=== PATIENT | female | born 1930 | race Caucasian/White ===

== ENCOUNTER 2017-11-29 14:31 | Emergency (ER) | payer MEDICARE, BC ==
[~2017-11-29 14:31] MED LIST: AZIT250T43 PO; CARA1TAB2 PO; FERR324T4 PO; HYDR-3533 PO; HYDR25TA35 PO; NAPR500 PO; PRED20 PO; PROT40TA PO; TRAM50TA PO; VENTAER INH
[2017-11-29 14:35] VITALS: BP 150/85; PULSE 98; RESP 18; TEMP 98.9; O2SAT 96
[2017-11-29] MEDS ORDERED: TRAM50TA PO ×2 (14:49→16:52)
[2017-11-29] MEDS ORDERED: ASPI81CH6 CHEW (14:49)
--- NOTE | 2017-11-29 15:29 | PD ---
HPI . Pain Chief Complaint: Pain: Acute or Chronic Time Seen by Provider: 14:45 Travel History International Travel<30 days: No Contact w/Intl Traveler<30days: No Traveled to known affect area: No History of Present Illness HPI Patient presents complaining with diffuse pain. However, when asked to localize the pain, she points to her neck area. She states that it has been ongoing for 3-4 days. Her states that this is been an ongoing problem. He does admit that it has been worse for the last 3-4 days. She describes the pain as spasms and rates it at 10/10. Tylenol gives her mild relief. She states that she saw her primary care provider yesterday for these symptoms and was given a prescription for prednisone. She states that she is allergic to prednisone so has not taken it. She does not recall what her allergy to prednisone is. In addition, she states that her primary care provider gave her a prescription for Levaquin because of a productive cough. 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)) Cardiovascular Problems: Yes ("BLEEDING HEART") Chest Pain: Yes Diabetes: Yes (TYPE 2) Patient Takes Glucophage: No Endocrine: Yes Gastrointestinal Disorders: Yes (CONSTIPATION) GERD: Yes ("DEPENDS ON WHAT I EAT" PER PATIENT) Genitourinary: No Hepatitis: No Hiatal Hernia: Yes (REPAIRED) Hypertension: Yes Immune Disorder: No Musculoskeletal: No Neurologic: No Psychiatric: No Reproductive: No Respiratory: Yes (BRONCHITIS) Myocardial Infarction: Yes Thyroid Disease: Yes (PARTIALLY REMOVED) Menopausal: Yes Past Surgical History Abdominal Surgery: Yes (CHOLECYSTECTOMY, HIATAL HERNIA REP.) AICD: No Cholecystectomy: Yes Endocrine Surgery: Yes (PARTIAL THYROIDECTOMY) Gynecologic Surgery: Yes (HYSTERECTOMY) Hysterectomy: Yes (FULL) Joint Replacement: No Oral Surgery: Yes (TONSILLECTOMY) Pacemaker: No Tonsillectomy: Yes Other Surgery: Yes Social History Alcohol Use: No Tobacco Use: No Substance Use: No Allergies-Medications (Allergen,Severity, Reaction): Coded Allergies: codeine (Unverified Allergy, Severe, 06/24/17) ITCH--INTERMEDIATE estradiol (Unverified Allergy, Severe, 06/24/17) estrogens, conjugated (Unverified Allergy, Severe, 06/24/17) fexofenadine (Unverified Allergy, Severe, 06/24/17) GEN'L BODY RASH SEVERE prednisone (Verified Adverse Reaction, Severe, 11/29/17) Reported Meds & Prescriptions Reported Meds & Active Scripts Active Tramadol (Tramadol HCl) 50 Mg Tab 50 Mg PO TID PRN Reported Aspirin Low Dose (Aspirin) 81 Mg Chew 81 Mg CHEW DAILY Review of Systems Except as stated in HPI: all other systems reviewed are Neg General / Constitutional: Positive: Fever, Chills Respiratory: Positive: Cough Musculoskeletal: Positive: Arthralgias Physical Exam Narrative GENERAL: Elderly patient who does not appear to be in any acute distress. SKIN: warm/dry. HEAD: Normocephalic. Atraumatic. EYES: Pupils equal and round. No scleral icterus. No injection or drainage. ENT: No nasal bleeding or discharge. Mucous membranes pink and moist. NECK: Trachea midline. Full range of motion without pain.. CARDIOVASCULAR: Regular rate and rhythm. Heart sounds normal. RESPIRATORY: No accessory muscle use. Clear to auscultation. Breath sounds equal bilaterally. She does have an occasional cough. GASTROINTESTINAL: Abdomen soft. Nontender. Bowel sounds present. Nondistended. MUSCULOSKELETAL: Tender cervical and upper thoracic spine. Good range of motion. NEUROLOGICAL: Awake and alert. No obvious cranial nerve deficits. Motor grossly within normal limits. Normal speech. PSYCHIATRIC: Appropriate mood and affect; insight and judgment normal. Data Data Last Documented VS Vital Signs Date Time Temp Pulse Resp B/P (MAP) Pulse Ox O2 Delivery O2 Flow Rate FiO2 11/29/17 18:01 11/29/17 14:35 98.9 98 18 96 Orders Orders Basic Metabolic Panel (Bmp) (11/29/17 15:05) Complete Blood Count With Diff (11/29/17 15:05) Urinalysis - C+S If Indicated (11/29/17 15:05) Chest, Single Ap (11/29/17 15:30) Tramadol (Ultram) (11/29/17 16:00) Ed Discharge Order (11/29/17 17:53) Labs Laboratory Tests Test 11/29/17 16:39 11/29/17 17:07 White Blood Count 3.7 TH/MM3 Red Blood Count 4.57 MIL/MM3 Hemoglobin 12.5 GM/DL Hematocrit 36.9 % Mean Corpuscular Volume 80.7 FL Mean Corpuscular Hemoglobin 27.3 PG Mean Corpuscular Hemoglobin Concent 33.8 % Red Cell Distribution Width 15.3 % Platelet Count 193 TH/MM3 Mean Platelet Volume 9.0 FL Neutrophils (%) (Auto) 51.9 % Lymphocytes (%) (Auto) 31.6 % Monocytes (%) (Auto) 11.6 % Eosinophils (%) (Auto) 3.9 % Basophils (%) (Auto) 1.0 % Neutrophils # (Auto) 1.9 TH/MM3 Lymphocytes # (Auto) 1.2 TH/MM3 Monocytes # (Auto) 0.4 TH/MM3 Eosinophils # (Auto) 0.1 TH/MM3 Basophils # (Auto) 0.0 TH/MM3 CBC Comment DIFF FINAL Differential Comment Blood Urea Nitrogen 18 MG/DL Creatinine 1.95 MG/DL Random Glucose 115 MG/DL Calcium Level 8.8 MG/DL Sodium Level 139 MEQ/L Potassium Level 4.6 MEQ/L Chloride Level 107 MEQ/L Carbon Dioxide Level 23.4 MEQ/L Anion Gap 9 MEQ/L Estimat Glomerular Filtration Rate 24 ML/MIN Urine Color YELLOW Urine Turbidity CLEAR Urine pH 5.0 Urine Specific [place] 1.009 Urine Protein 30 mg/dL Urine Glucose (UA) NEG mg/dL Urine Ketones NEG mg/dL Urine Occult Blood NEG Urine Nitrite NEG Urine Bilirubin NEG Urine Urobilinogen LESS THAN 2.0 MG/DL Urine Leukocyte Esterase NEG Urine RBC LESS THAN 1 /hpf Urine WBC 1 /hpf Microscopic Urinalysis Comment CULT NOT INDICATED MDM Medical Decision Making Medical Screen Exam Complete: Yes Emergency Medical Condition: Yes Medical Record Reviewed: Yes (she has a history of previous acute renal failure.) Differential Diagnosis Differential diagnosis includes but is not limited to viral syndrome, rhabdomyolysis, sepsis, overuse syndrome, DJD Narrative Course This patient presents with chief complaint of "spasms" in her cervical and thoracic spine. She also reports a cough. I am doing a modified pneumonia workup consisting of a chest x-ray and CBC. I will check her electrolytes because of the reported spasms. Last Impressions Chest X-Ray 11/29/17 1530 Signed Impressions: Service Date/Time: Wednesday, November 29, 2017 15:40 - CONCLUSION: Cardiomegaly. No pneumonia. Fabrice Mullen MD The chest x-ray was independently viewed by me. This patient has a reported history of acute renal failure and renal insufficiency. Therefore, nonsteroidal anti-inflammatory agents are contraindicated. She reports an allergy to prednisone. Unfortunately, the nature of the allergy is unknown. So, steroids are not an option for this patient. Additionally, she reports an allergy to codeine. Therefore, Tylenol with codeine is not an option for this patient. CBC & BMP Diagram 11/29/17 16:39 Calcium Level 8.8 UA neg Diagnosis Primary Impression: Neck pain Additional Impression: Cough Patient Instructions: Chronic Neck Pain (DC), General Instructions Additional Instructions: Try applying ice to your neck when you have severe pain. Med/Other Pt SpecificInfo: Prescription(s) given Scripts Tramadol (Tramadol) 50 Mg Tab 50 MG PO TID Y for PAIN, #12 TAB 0 Refills Prov: Radha Johnson MD 11/29/17 Disposition: 01 DISCHARGE HOME Condition: Stable Radha Johnson MD Nov 29, 2017 15:29
--- NOTE | 2017-11-29 15:56 | RADRPT ---
EXAM DATE/TIME: 11/29/2017 15:40 [facility] COMPARISON: CHEST SINGLE AP, January 08, 2016, 1:34. INDICATIONS : Cough. MEDICAL HISTORY : Osteoporosis. Renal failure. SURGICAL HISTORY : None. ENCOUNTER: Initial ACUITY: 2 weeks PAIN SCORE: 0/10 LOCATION: Bilateral chest FINDINGS: A single view of the chest demonstrates the lungs to be symmetrically aerated without evidence of mas s, infiltrate or effusion. Cardiomegaly. The cardiomediastinal contours are unremarkable. Osseous s tructures are intact. CONCLUSION: Cardiomegaly. No pneumonia. Fabrice Mullen MD on November 29, 2017 at 15:54 Board Certified Radiologist. This report was verified electronically.
[2017-11-29] MEDS ORDERED: traMADol HCL 50 MG TAB PO ONE (16:00)
[2017-11-29 17:01] LABS: AUTOMATED NEUTROPHIL # 1.9 TH/MM3 (1.8-7.7); EOSINOPHIL # 0.1 TH/MM3 (0-0.4); EOSINOPHIL % 3.9 % (0.0-4.0); HEMATOCRIT 36.9 % (35.0-46.0); HEMOGLOBIN 12.5 GM/DL (11.6-15.3); LYMPH % 31.6 % (9.0-44.0); LYMPHOCYTE # 1.2 TH/MM3 (1.0-4.8); MEAN CELL VOLUME 80.7 FL (80.0-100.0); MEAN CORPUSCULAR HEMOGLOBIN 27.3 PG (27.0-34.0); MEAN CORPUSCULAR HGB CONC 33.8 % (32.0-36.0); MONO % 11.6 % (0.0-8.0); MONOCYTE # 0.4 TH/MM3 (0-0.9); NEUT % 51.9 % (16.0-70.0); PLATELET COUNT 193 TH/MM3 (150-450); RED BLOOD COUNT 4.57 MIL/MM3 (4.00-5.30); RED CELL DISTRIBUTION WIDTH 15.3 % (11.6-17.2); WHITE BLOOD COUNT 3.7 TH/MM3 (4.0-11.0)
[2017-11-29 17:10] LABS: BICARBONATE 23.4 MEQ/L (21.0-32.0); CALCIUM 8.8 MG/DL (8.5-10.1); CREATININE 1.95 MG/DL (0.50-1.00)
[2017-11-29 17:40] LABS: BILIRUBIN, URINE NEG (NEG); BLOOD, URINE NEG (NEG); GLUCOSE,URINE NEG (NEG); KETONE, URINE NEG (NEG); NITRITE,URINE NEG (NEG); URINE COLOR YELLOW (YELLW/STRAW); URINE LEUKOCYTE ESTERASE NEG (NEG)
--- NOTE | 2017-11-29 17:49 | PD ---
Data Data Last Documented VS Vital Signs Date Time Temp Pulse Resp B/P (MAP) Pulse Ox O2 Delivery O2 Flow Rate FiO2 11/29/17 18:01 11/29/17 14:35 98.9 98 18 96 Orders Orders Basic Metabolic Panel (Bmp) (11/29/17 15:05) Complete Blood Count With Diff (11/29/17 15:05) Urinalysis - C+S If Indicated (11/29/17 15:05) Chest, Single Ap (11/29/17 15:30) Tramadol (Ultram) (11/29/17 16:00) Ed Discharge Order (11/29/17 17:53) Labs Laboratory Tests Test 11/29/17 16:39 11/29/17 17:07 White Blood Count 3.7 TH/MM3 Red Blood Count 4.57 MIL/MM3 Hemoglobin 12.5 GM/DL Hematocrit 36.9 % Mean Corpuscular Volume 80.7 FL Mean Corpuscular Hemoglobin 27.3 PG Mean Corpuscular Hemoglobin Concent 33.8 % Red Cell Distribution Width 15.3 % Platelet Count 193 TH/MM3 Mean Platelet Volume 9.0 FL Neutrophils (%) (Auto) 51.9 % Lymphocytes (%) (Auto) 31.6 % Monocytes (%) (Auto) 11.6 % Eosinophils (%) (Auto) 3.9 % Basophils (%) (Auto) 1.0 % Neutrophils # (Auto) 1.9 TH/MM3 Lymphocytes # (Auto) 1.2 TH/MM3 Monocytes # (Auto) 0.4 TH/MM3 Eosinophils # (Auto) 0.1 TH/MM3 Basophils # (Auto) 0.0 TH/MM3 CBC Comment DIFF FINAL Differential Comment Blood Urea Nitrogen 18 MG/DL Creatinine 1.95 MG/DL Random Glucose 115 MG/DL Calcium Level 8.8 MG/DL Sodium Level 139 MEQ/L Potassium Level 4.6 MEQ/L Chloride Level 107 MEQ/L Carbon Dioxide Level 23.4 MEQ/L Anion Gap 9 MEQ/L Estimat Glomerular Filtration Rate 24 ML/MIN Urine Color YELLOW Urine Turbidity CLEAR Urine pH 5.0 Urine Specific [place] 1.009 Urine Protein 30 mg/dL Urine Glucose (UA) NEG mg/dL Urine Ketones NEG mg/dL Urine Occult Blood NEG Urine Nitrite NEG Urine Bilirubin NEG Urine Urobilinogen LESS THAN 2.0 MG/DL Urine Leukocyte Esterase NEG Urine RBC LESS THAN 1 /hpf Urine WBC 1 /hpf Microscopic Urinalysis Comment CULT NOT INDICATED MDM Supervised Visit with PERLA: No Narrative Course Patient care assumed from Dr. Johnson at 1700, this an 87-year-old female with asked to follow up labs and imaging. Patient initial work unremarkable, she is feeling better, she states that she has had osteoarthritis for some number of years in thinks it is just flaring on her, she has been prescribed steroids by her primary care physician Maribel states that she is allergic in does not want to take them. Discussed symptomatic management, Dr. Johnson as written a prescription for tramadol, she stable for discharge Diagnosis Primary Impression: Neck pain Additional Impression: Cough Patient Instructions: General Instructions, Chronic Neck Pain (DC) Additional Instruction: Try applying ice to your neck when you have severe pain. Scripts Tramadol (Tramadol) 50 Mg Tab 50 MG PO TID Y for PAIN, #12 TAB 0 Refills Prov: Radha Johnson MD 11/29/17 Disposition: 01 DISCHARGE HOME Condition: Stable Steffen Caballero MD Nov 29, 2017 17:49
== END 2017-11-29 18:20 | disposition home or self-care (01) ==
LOC: NEPD 14:31
DX: M54.2 Cervicalgia (principal); R05 Cough; M62.838 Other muscle spasm; N28.9 Disorder of kidney and ureter, unspecified; E11.9 Type 2 diabetes mellitus without complications; I10 Essential (primary) hypertension; M19.90 Unspecified osteoarthritis, unspecified site; J45.909 Unspecified asthma, uncomplicated; I25.2 Old myocardial infarction
CPT/HCPCS: 71045; 80048; 81001; 85025; 99284

== ENCOUNTER 2017-12-29 18:16 | Inpatient (IN) | payer MEDICARE, BC, OTHER ==
[~2017-12-29] VITALS: Ht 160 cm; Wt 59.4 kg
[~2017-12-29 18:16] MED LIST changes: +ASPI81CH6 CHEW; -AZIT250T43 PO; -CARA1TAB2 PO; -FERR324T4 PO; -HYDR-3533 PO; -HYDR25TA35 PO; -NAPR500 PO; -PRED20 PO; -PROT40TA PO; -VENTAER INH
[2017-12-29 18:28] VITALS: BP 140/97; PULSE 120; RESP 18; TEMP 97.8; O2SAT 99
[2017-12-29 20:14] LABS: ALBUMIN 3.2 GM/DL (3.4-5.0); AST (GOT) 21 U/L (15-37); BICARBONATE 23.1 MEQ/L (21.0-32.0); BLOOD UREA NITROGEN 16 MG/DL (7-18); CHLORIDE 108 MEQ/L (98-107); CREATININE 1.78 MG/DL (0.50-1.00); GLOMERULAR FILTRATION RATE 27 ML/MIN (>89); GLUCOSE,RANDOM 122 MG/DL (74-106); SODIUM (NA) 141 MEQ/L (136-145)
[2017-12-29 20:23] LABS: ACETAMINOPHEN LESS THAN 2.0 MCG/ML (10.0-30.0); ALKALINE PHOSPHATASE 93 U/L (45-117); ALT (GPT) 13 U/L (10-53); TOTAL BILIRUBIN ADULT 0.2 MG/DL (0.2-1.0); TOTAL PROTEIN 7.2 GM/DL (6.4-8.2)
--- NOTE | 2017-12-30 00:09 | PD ---
HPI Chief Complaint: Psychiatric Symptoms Time Seen by Provider: 22:15 Travel History International Travel<30 days: No Contact w/Intl Traveler<30days: No Traveled to known affect area: No History of Present Illness HPI The patient is a 87-year-old female who presents to the emergency department as an [place]. The patient states she lives al at home with her , however, her has been staying with a "witch" from next door who has been living in her house for the last 3 years. The patient states that her in the lady neighbor are trying to get her house and taking her belongings. 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 The patient denies any current physical complaints, states her h son recently flew out from [place], [place]. She denies any headache, chest pain, shortness of breath, nausea, vomiting, or abdominal pain. Symptoms are moderate. There are no current alleviating or exacerbating factors. She denies alcohol use or illicit drug use. She denies any hallucinations or delusions. 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)) Cardiovascular Problems: Yes ("BLEEDING HEART") Chest Pain: Yes Diabetes: Yes (TYPE 2) Endocrine: Yes Gastrointestinal Disorders: Yes (CONSTIPATION) GERD: Yes ("DEPENDS ON WHAT I EAT" PER PATIENT) Genitourinary: No Hepatitis: No Hiatal Hernia: Yes (REPAIRED) Hypertension: Yes Immune Disorder: No Musculoskeletal: No Neurologic: No Psychiatric: No Reproductive: No Respiratory: Yes (BRONCHITIS) Myocardial Infarction: Yes Thyroid Disease: Yes (PARTIALLY REMOVED) ?: Not Menopausal: Yes Past Surgical History Surgical History: Unable to Obtain Abdominal Surgery: Yes (CHOLECYSTECTOMY, HIATAL HERNIA REP.) AICD: No Cholecystectomy: Yes Endocrine Surgery: Yes (PARTIAL THYROIDECTOMY) Gynecologic Surgery: Yes (HYSTERECTOMY) Hysterectomy: Yes (FULL) Joint Replacement: No Oral Surgery: Yes (TONSILLECTOMY) Pacemaker: No Tonsillectomy: Yes Other Surgery: Yes Social History Alcohol Use: No Tobacco Use: No Substance Use: No Allergies-Medications (Allergen,Severity, Reaction): Coded Allergies: codeine (Unverified Allergy, Severe, 12/29/17) ITCH--INTERMEDIATE estradiol (Unverified Allergy, Severe, 12/29/17) estrogens, conjugated (Unverified Allergy, Severe, 12/29/17) fexofenadine (Unverified Allergy, Severe, 12/29/17) GEN'L BODY RASH SEVERE prednisone (Verified Adverse Reaction, Severe, 12/29/17) Reported Meds & Prescriptions Reported Meds & Active Scripts Active No Active Prescriptions or Reported Medications Review of Systems Except as stated in HPI: all other systems reviewed are Neg Cardiovascular: No: Chest Pain or Discomfort Respiratory: No: Shortness of Breath Gastrointestinal: No: Nausea, Vomiting, Abdominal Pain Musculoskeletal: No: Weakness Neurologic: No: Change in Mentation Psychiatric: No: Anxiety, Depression, Suicidal Ideations, Disorder of Thought, Mood Disorder, Substance Abuse Physical Exam Narrative GENERAL: Awake, alert, pleasant 87-year-old female who appears her stated age and is in no acute respiratory distress. SKIN: Focused skin assessment warm/dry. HEAD: Atraumatic. Normocephalic. The patient has curlers in her hair. EYES: Pupils equal and round. 3 mm bilateral and reactive. Patient is wearing glasses. ENT: No nasal bleeding or discharge. Mucous membranes pink and moist. NECK: Trachea midline. No JVD. CARDIOVASCULAR: Regular rate and rhythm. No murmur appreciated. RESPIRATORY: No accessory muscle use. Clear to auscultation. Breath sounds equal bilaterally. GASTROINTESTINAL: Abdomen soft, well-healed right upper quadrant abdominal scar. No guarding or rigidity. MUSCULOSKELETAL: No obvious deformities. No clubbing. No cyanosis. No edema. NEUROLOGICAL: Awake and alert. No obvious cranial nerve deficits. Motor grossly within normal limits. Normal speech. 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 She did not know the current year. PSYCHIATRIC: Appropriate mood and affect; insight and judgment normal. Data Data Last Documented VS Vital Signs Date Time Temp Pulse Resp B/P (MAP) Pulse Ox O2 Delivery O2 Flow Rate FiO2 12/29/17 18:28 97.8 120 18 140/97 (111) 99 Orders Orders Complete Blood Count With Diff (12/29/17 18:37) Comprehensive Metabolic Panel (12/29/17 18:37) Thyroid Stimulating Hormone (12/29/17 18:37) Urinalysis - C+S If Indicated (12/29/17 18:37) Psych Screen (12/29/17 18:37) Drug Screen, Random Urine (12/29/17 18:37) Alcohol (Ethanol) (12/29/17 18:37) Salicylates (Aspirin) (12/29/17 18:37) Tylenol (Acetaminophen) (12/29/17 18:37) Labs Laboratory Tests Test 12/29/17 19:06 12/29/17 23:29 12/30/17 00:37 Blood Urea Nitrogen 16 MG/DL Creatinine 1.78 MG/DL Random Glucose 122 MG/DL Total Protein 7.2 GM/DL Albumin 3.2 GM/DL Calcium Level 9.0 MG/DL Alkaline Phosphatase 93 U/L Aspartate Amino Transf (AST/SGOT) 21 U/L Alanine Aminotransferase (ALT/SGPT) 13 U/L Total Bilirubin 0.2 MG/DL Sodium Level 141 MEQ/L Potassium Level 4.1 MEQ/L Chloride Level 108 MEQ/L Carbon Dioxide Level 23.1 MEQ/L Anion Gap 10 MEQ/L Estimat Glomerular Filtration Rate 27 ML/MIN Thyroid Stimulating Hormone 3rd Gen 2.060 uIU/ML Salicylates Level LESS THAN 1.7 MG/DL Acetaminophen Level LESS THAN 2.0 MCG/ML Ethyl Alcohol Level LESS THAN 3 MG/DL White Blood Count 9.7 TH/MM3 Red Blood Count 4.78 MIL/MM3 Hemoglobin 12.6 GM/DL Hematocrit 37.7 % Mean Corpuscular Volume 78.9 FL Mean Corpuscular Hemoglobin 26.4 PG Mean Corpuscular Hemoglobin Concent 33.4 % Red Cell Distribution Width 15.1 % Platelet Count 319 TH/MM3 Mean Platelet Volume 7.9 FL Neutrophils (%) (Auto) 68.4 % Lymphocytes (%) (Auto) 19.8 % Monocytes (%) (Auto) 6.9 % Eosinophils (%) (Auto) 3.8 % Basophils (%) (Auto) 1.1 % Neutrophils # (Auto) 6.6 TH/MM3 Lymphocytes # (Auto) 1.9 TH/MM3 Monocytes # (Auto) 0.7 TH/MM3 Eosinophils # (Auto) 0.4 TH/MM3 Basophils # (Auto) 0.1 TH/MM3 CBC Comment DIFF FINAL Differential Comment Urine Color LIGHT-YELLOW Urine Turbidity CLEAR Urine pH 6.0 Urine Specific [place] 1.006 Urine Protein TRACE mg/dL Urine Glucose (UA) NEG mg/dL Urine Ketones NEG mg/dL Urine Occult Blood NEG Urine Nitrite NEG Urine Bilirubin NEG Urine Urobilinogen LESS THAN 2.0 MG/DL Urine Leukocyte Esterase NEG Urine RBC LESS THAN 1 /hpf Urine WBC LESS THAN 1 /hpf Urine Squamous Epithelial Cells <1 /hpf Urine Hyaline Casts 3 /lpf Microscopic Urinalysis Comment CULT NOT INDICATED Urine Opiates Screen NEG Urine Barbiturates Screen NEG Urine Amphetamines Screen NEG Urine Benzodiazepines Screen NEG Urine Cocaine Screen NEG Urine Cannabinoids Screen NEG MDM Medical Decision Making Medical Screen Exam Complete: Yes Emergency Medical Condition: Yes Medical Record Reviewed: Yes Interpretation(s) Laboratory Tests Test 12/29/17 19:06 12/29/17 23:29 12/30/17 00:37 Blood Urea Nitrogen 16 MG/DL Creatinine 1.78 MG/DL Random Glucose 122 MG/DL Total Protein 7.2 GM/DL Albumin 3.2 GM/DL Calcium Level 9.0 MG/DL Alkaline Phosphatase 93 U/L Aspartate Amino Transf (AST/SGOT) 21 U/L Alanine Aminotransferase (ALT/SGPT) 13 U/L Total Bilirubin 0.2 MG/DL Sodium Level 141 MEQ/L Potassium Level 4.1 MEQ/L Chloride Level 108 MEQ/L Carbon Dioxide Level 23.1 MEQ/L Anion Gap 10 MEQ/L Estimat Glomerular Filtration Rate 27 ML/MIN Thyroid Stimulating Hormone 3rd Gen 2.060 uIU/ML Salicylates Level LESS THAN 1.7 MG/DL Acetaminophen Level LESS THAN 2.0 MCG/ML Ethyl Alcohol Level LESS THAN 3 MG/DL White Blood Count 9.7 TH/MM3 Red Blood Count 4.78 MIL/MM3 Hemoglobin 12.6 GM/DL Hematocrit 37.7 % Mean Corpuscular Volume 78.9 FL Mean Corpuscular Hemoglobin 26.4 PG Mean Corpuscular Hemoglobin Concent 33.4 % Red Cell Distribution Width 15.1 % Platelet Count 319 TH/MM3 Mean Platelet Volume 7.9 FL Neutrophils (%) (Auto) 68.4 % Lymphocytes (%) (Auto) 19.8 % Monocytes (%) (Auto) 6.9 % Eosinophils (%) (Auto) 3.8 % Basophils (%) (Auto) 1.1 % Neutrophils # (Auto) 6.6 TH/MM3 Lymphocytes # (Auto) 1.9 TH/MM3 Monocytes # (Auto) 0.7 TH/MM3 Eosinophils # (Auto) 0.4 TH/MM3 Basophils # (Auto) 0.1 TH/MM3 CBC Comment DIFF FINAL Differential Comment Urine Color LIGHT-YELLOW Urine Turbidity CLEAR Urine pH 6.0 Urine Specific [place] 1.006 Urine Protein TRACE mg/dL Urine Glucose (UA) NEG mg/dL Urine Ketones NEG mg/dL Urine Occult Blood NEG Urine Nitrite NEG Urine Bilirubin NEG Urine Urobilinogen LESS THAN 2.0 MG/DL Urine Leukocyte Esterase NEG Urine RBC LESS THAN 1 /hpf Urine WBC LESS THAN 1 /hpf Urine Squamous Epithelial Cells <1 /hpf Urine Hyaline Casts 3 /lpf Microscopic Urinalysis Comment CULT NOT INDICATED Urine Opiates Screen NEG Urine Barbiturates Screen NEG Urine Amphetamines Screen NEG Urine Benzodiazepines Screen NEG Urine Cocaine Screen NEG Urine Cannabinoids Screen NEG Differential Diagnosis Differential diagnosis includes delirium, dementia, psychosis, UTI, hyponatremia , schizoaffective disorder. Narrative Course Labs were drawn and sent. Psychiatric evaluation was ordered. Labs reveal an elevated creatinine, otherwise unremarkable. Patient is medically cleared to be evaluated by psychiatry. Disposition as per psych. Diagnosis Primary Impression: Medical clearance for psychiatric admission Scripts No Active Prescriptions or Reported Meds Condition: Stable Tyler Singh MD Dec 30, 2017 00:09
[2017-12-30 00:29] LABS: AUTOMATED NEUTROPHIL # 6.6 TH/MM3 (1.8-7.7); BASOPHIL # 0.1 TH/MM3 (0-0.2); BASOPHIL % 1.1 % (0.0-2.0); EOSINOPHIL # 0.4 TH/MM3 (0-0.4); EOSINOPHIL % 3.8 % (0.0-4.0); HEMATOCRIT 37.7 % (35.0-46.0); HEMOGLOBIN 12.6 GM/DL (11.6-15.3); LYMPH % 19.8 % (9.0-44.0); LYMPHOCYTE # 1.9 TH/MM3 (1.0-4.8); MEAN CELL VOLUME 78.9 FL (80.0-100.0); MEAN CORPUSCULAR HEMOGLOBIN 26.4 PG (27.0-34.0); MEAN CORPUSCULAR HGB CONC 33.4 % (32.0-36.0); MEAN PLATELET VOLUME 7.9 FL (7.0-11.0); MONO % 6.9 % (0.0-8.0); MONOCYTE # 0.7 TH/MM3 (0-0.9); NEUT % 68.4 % (16.0-70.0); PLATELET COUNT 319 TH/MM3 (150-450); RED BLOOD COUNT 4.78 MIL/MM3 (4.00-5.30); RED CELL DISTRIBUTION WIDTH 15.1 % (11.6-17.2); WHITE BLOOD COUNT 9.7 TH/MM3 (4.0-11.0)
[2017-12-30 00:53] LABS: BILIRUBIN, URINE NEG (NEG); BLOOD, URINE NEG (NEG); GLUCOSE,URINE NEG (NEG); HYALINE CAST, URINE 3 /lpf (RARE); KETONE, URINE NEG (NEG); NITRITE,URINE NEG (NEG); SQUAMOUS EPITHELIAL CELL URINE <1 /hpf (0-5); URINE COLOR LIGHT-YELLOW (YELLW/STRAW); URINE LEUKOCYTE ESTERASE NEG (NEG)
[2017-12-30 06:41] VITALS: BP 185/84; PULSE 91; RESP 18; O2SAT 99
[2017-12-30 11:00] VITALS: BP 130/72; PULSE 80; RESP 16; O2SAT 98
[2017-12-30 15:43] VITALS: BP 128/74; PULSE 84; RESP 15; TEMP 98; O2SAT 97
[2017-12-30 19:30] VITALS: BP 170/84; PULSE 90; RESP 17; TEMP 98.4; O2SAT 98
[2017-12-30] MEDS ORDERED: LORazepam 0.5 MG TAB age > 65 yrs PO PRN (20:15)
[2017-12-30] MEDS ORDERED: ACETAMINOPHEN 325 MG TAB PO PRN (20:15)
[2017-12-30] MEDS ORDERED: ALUMINUM/MAGNESIUM/SIMETH 30 ML CUP PO PRN (20:15)
[2017-12-30] MEDS ORDERED: LORazepam 2 MG/ML VIAL - age > 65 yrs IM PRN (20:15)
[2017-12-31 05:00] VITALS: BP 153/85; PULSE 84; RESP 16; TEMP 99.1; O2SAT 95
[2017-12-31 11:03] LABS: BICARBONATE 27.1 MEQ/L (21.0-32.0); BLOOD UREA NITROGEN 21 MG/DL (7-18); CALCIUM 9.2 MG/DL (8.5-10.1); CHLORIDE 105 MEQ/L (98-107); CHOLESTEROL 210 MG/DL (120-200); CREATININE 1.63 MG/DL (0.50-1.00); GLOMERULAR FILTRATION RATE 30 ML/MIN (>89); GLUCOSE,RANDOM 151 MG/DL (74-106); SODIUM (NA) 142 MEQ/L (136-145)
[2017-12-31 11:07] LABS: CHOLESTEROL/ HDL RATIO 6.38 RATIO; HDL CHOLESTEROL 32.9 MG/DL (40.0-60.0); LDL CHOLESTEROL 137 MG/DL (0-99); TRIGLYCERIDES 202 MG/DL (42-150)
[2017-12-31 13:05] LABS: HEMOGLOBIN A1C 6.3 % (4.3-6.0)
[2017-12-31] MEDS ORDERED: hydrOXYzine HCL 50 MG TAB PO PRN (13:30)
[2017-12-31] MEDS ORDERED: diphenhydrAMINE HCL 50 MG CAP PO PRN (13:30)
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
--- NOTE | 2017-12-31 14:59 | EKG ---
Date Performed: 12/31/2017 Time Performed: 10:02:42 PTAGE: 87 years EKG: SINUS TACHYCARDIA NONSPECIFIC ST & T-WAVE ABNORMALITY ABNORMAL ECG PREVIOUS TRACING : 02/20/2014 17.12 DOCTOR: Andrew Johnson Interpretating Date/Time 12/31/2017 14:58:05
[2017-12-31 18:25] VITALS: BP 142/81; PULSE 82; RESP 18; TEMP 99.2; O2SAT 98
[2018-01-01 05:23] VITALS: BP 137/64; PULSE 73; RESP 15; TEMP 98.4; O2SAT 98
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
[2018-01-01] MEDS: MAGNESIUM HYDROXIDE SUSP 30 ML CUP PO PRN (14:24)
[2018-01-01 17:17] VITALS: BP 135/62; PULSE 86; RESP 16; TEMP 98.6; O2SAT 93
[2018-01-02 06:16] VITALS: BP 129/70; PULSE 74; RESP 18; TEMP 98.8; O2SAT 97
--- NOTE | 2018-01-02 12:03 | HHI.PYPN ---
Subjective Remarks Patient seen in day room with nurse Alirio, chart reviewed, patient discussed with nurse. Patient remains calm pleasant. Though that is mostly from change in her feelings related to her . She didn't need a period of Atarax to help her sleep last night Review of Systems Except as stated in HPI: all other systems reviewed are Neg Mental Status Examination Appearance: Appropriate Consciousness: Alert Orientation: Person, Place Motor Activity: Other (somewhat shuffling with walker) Speech: Unremarkable Language: Adequate Fund of Knowledge: Adequate Attention and Concentration: Other (fair) Memory: Impaired Mood: Other (euthymic to somewhat irritable) Affect: Other (slight increase range intensity) Thought Process & Associations: Linear Thought Content: Bizarre thinking, Delusional Hallucination Type: None (denies) Delusion Type: Paranoid, Other (jealousy) Suicidal Ideation: No Suicidal Plan: No Suicidal Intention: No Homicidal Ideation: No Homicidal Plan: No Homicidal Intention: No Insight: Poor Judgment: Poor Results Vitals/IOs Vital Signs Date Time Temp Pulse Resp B/P (MAP) Pulse Ox O2 Delivery O2 Flow Rate FiO2 01/02/18 06:16 98.8 74 18 129/70 (89) 97 12/30/17 15:43 Room Air Intake and Output 01/02/18 01/02/18 01/03/18 08:00 16:00 00:00 Intake Total 0 ml Balance 0 ml Assessment & Plan Problem List: (1) Delusional disorder ICD Codes: F22 - Delusional disorders (2) DEMENTIA IN OTH DISEASES CLASSD ELSWHR W BEHAVIORAL DISTURB ICD Codes: F02.81 - DEMENTIA IN OTH DISEASES CLASSD ELSWHR W BEHAVIORAL DISTURB (3) ALZHEIMER'S DISEASE WITH LATE ONSET ICD Codes: G30.1 - ALZHEIMER'S DISEASE WITH LATE ONSET Assessment & Plan Estimated LOS: days patient remains somewhat confused disoriented will also with delusional ideation related to her the need dose of Atarax to help her sleep last night Justification for Cont. Inpt. Show decompensate to place to the lower level of care Discharge Planning Place of remains to be determined Request HC Surrog/Guard Advoc?: Yes Luis Wolf MD Jan 02, 2018 12:03
[2018-01-02 20:00] VITALS: BP 126/76; PULSE 76; RESP 16; TEMP 98.6; O2SAT 97
[2018-01-02] MEDS: MAGNESIUM HYDROXIDE SUSP 30 ML CUP PO PRN (20:22)
[2018-01-03 05:51] VITALS: BP 152/78; PULSE 76; RESP 17; TEMP 98.5; O2SAT 99
--- NOTE | 2018-01-03 14:56 | HHI.PYPN ---
Subjective Remarks Pt seen and discussed with staff. Pt is compliant and cooperative. Mood is brighter today. No delusional statements today. No SI/HI Mental Status Examination Appearance: Appropriate Consciousness: Alert Orientation: Person, Place Motor Activity: Other (somewhat shuffling with walker) Speech: Unremarkable Language: Adequate Fund of Knowledge: Adequate Attention and Concentration: Other (fair) Memory: Impaired Mood: Other (euthymic to somewhat irritable) Affect: Other (slight increase range intensity) Thought Process & Associations: Linear Thought Content: Appropriate, Delusional Hallucination Type: None (denies) Delusion Type: None, Other (jealousy) Suicidal Ideation: No Suicidal Plan: No Suicidal Intention: No Homicidal Ideation: No Homicidal Plan: No Homicidal Intention: No Insight: Poor Judgment: Poor Results Vitals/IOs Vital Signs Date Time Temp Pulse Resp B/P (MAP) Pulse Ox O2 Delivery O2 Flow Rate FiO2 01/03/18 05:51 98.5 76 17 152/78 (102) 99 12/30/17 15:43 Room Air Intake and Output 01/03/18 01/03/18 01/04/18 08:00 16:00 00:00 Intake Total 240 ml 240 ml Balance 240 ml 240 ml Assessment & Plan Problem List: (1) Delusional disorder ICD Codes: F22 - Delusional disorders (2) DEMENTIA IN OTH DISEASES CLASSD ELSWHR W BEHAVIORAL DISTURB ICD Codes: F02.81 - DEMENTIA IN OTH DISEASES CLASSD ELSWHR W BEHAVIORAL DISTURB (3) ALZHEIMER'S DISEASE WITH LATE ONSET ICD Codes: G30.1 - ALZHEIMER'S DISEASE WITH LATE ONSET Assessment & Plan Continue current tx plan. Estimated LOS: days Justification for Cont. Inpt. risk of decompensation Request HC Surrog/Guard Advoc?: Yes Renay Walls MD Jan 03, 2018 14:55
[2018-01-03 18:06] VITALS: BP 153/89; PULSE 84; RESP 18; TEMP 97.7; O2SAT 99
[2018-01-04 05:38] VITALS: BP 157/74; PULSE 80; RESP 18; TEMP 98.2; O2SAT 98
--- NOTE | 2018-01-04 14:06 | HHI.PYPN ---
Subjective Remarks Pt seen and discussed with staff.Pt has been making statements that her is having an affair with a blond hair witch. No aggression or behavioral issues. Mental Status Examination Appearance: Appropriate Consciousness: Alert Orientation: Person, Place Motor Activity: Other (somewhat shuffling with walker) Speech: Unremarkable Language: Adequate Fund of Knowledge: Adequate Attention and Concentration: Other (fair) Memory: Impaired Mood: Other (euthymic to somewhat irritable) Affect: Other (slight increase range intensity) Thought Process & Associations: Linear Thought Content: Appropriate, Delusional Hallucination Type: None (denies) Delusion Type: Other (jealousy) Suicidal Ideation: No Suicidal Plan: No Suicidal Intention: No Homicidal Ideation: No Homicidal Plan: No Homicidal Intention: No Insight: Poor Judgment: Poor Results Vitals/IOs Vital Signs Date Time Temp Pulse Resp B/P (MAP) Pulse Ox O2 Delivery O2 Flow Rate FiO2 01/04/18 05:38 98.2 80 18 157/74 (101) 98 Intake and Output 01/04/18 01/04/18 01/05/18 08:00 16:00 00:00 Intake Total 360 ml Balance 360 ml Assessment & Plan Problem List: (1) Delusional disorder ICD Codes: F22 - Delusional disorders (2) DEMENTIA IN OTH DISEASES CLASSD ELSWHR W BEHAVIORAL DISTURB ICD Codes: F02.81 - DEMENTIA IN OTH DISEASES CLASSD ELSWHR W BEHAVIORAL DISTURB (3) ALZHEIMER'S DISEASE WITH LATE ONSET ICD Codes: G30.1 - ALZHEIMER'S DISEASE WITH LATE ONSET Assessment & Plan Continue current tx plan . Estimated LOS: days Justification for Cont. Inpt. risk of decompensation Request HC Surrog/Guard Advoc?: Yes Renay Walls MD Jan 04, 2018 14:06
[2018-01-04] MEDS: MAGNESIUM HYDROXIDE SUSP 30 ML CUP PO PRN ×2 (17:07→17:08)
[2018-01-04 18:08] VITALS: BP 142/65; PULSE 91; RESP 18; TEMP 98.2; O2SAT 98
[2018-01-05 05:56] VITALS: BP 118/56; PULSE 78; RESP 17; TEMP 98.8; O2SAT 97
--- NOTE | 2018-01-05 11:08 | HHI.PYPN ---
Subjective Remarks Patient seen in her room with nurse Alirio, chart reviewed, patient discussed with nurse. Patient calm cooperative pleasant. No behavioral problems. However there is no significant change patient's delusional related to her 's having an affair with a neighbor lady. Patient states she has things to do when she is discharged at home that she be willing to go home with report locks on all the doors around where she sleeps. Patient compliant medications, outside of patient's fixed delusions it appears she has no significant problem on the unit. I feel we need to discuss with patient's how aggressive we should be with this 87-year-old lady entreating though delusions. We'll attempt to make a family meeting the next 1-2 days Review of Systems Except as stated in HPI: all other systems reviewed are Neg Mental Status Examination Appearance: Appropriate Consciousness: Alert Orientation: Person, Place Motor Activity: Other (somewhat shuffling with walker) Speech: Unremarkable Language: Adequate Fund of Knowledge: Adequate Attention and Concentration: Other (fair) Memory: Impaired Mood: Other (euthymic to somewhat irritable) Affect: Other (slight increase range intensity) Thought Process & Associations: Linear Thought Content: Appropriate, Delusional Hallucination Type: None (denies) Delusion Type: Other (jealousy) Suicidal Ideation: No Suicidal Plan: No Suicidal Intention: No Homicidal Ideation: No Homicidal Plan: No Homicidal Intention: No Insight: Poor Judgment: Poor Results Vitals/IOs Vital Signs Date Time Temp Pulse Resp B/P (MAP) Pulse Ox O2 Delivery O2 Flow Rate FiO2 01/05/18 05:56 98.8 78 17 118/56 (76) 97 Intake and Output 01/05/18 01/05/18 01/06/18 08:00 16:00 00:00 Intake Total 0 ml 360 ml Balance 0 ml 360 ml Assessment & Plan Problem List: (1) Delusional disorder ICD Codes: F22 - Delusional disorders (2) DEMENTIA IN OTH DISEASES CLASSD ELSWHR W BEHAVIORAL DISTURB ICD Codes: F02.81 - DEMENTIA IN OTH DISEASES CLASSD ELSWHR W BEHAVIORAL DISTURB (3) ALZHEIMER'S DISEASE WITH LATE ONSET ICD Codes: G30.1 - ALZHEIMER'S DISEASE WITH LATE ONSET Assessment & Plan Estimated LOS: days patient remains confused demented with delusional ideation. Though no significant behavioral problems. For now continue treatment. Attempt to arrange meetings with patient's to discuss further treatment plans Justification for Cont. Inpt. At this time patient decompensated placed on the lower level of care Discharge Planning Possibility of return home no patient states she would put locks on her door to keep her now Request HC Surrog/Guard Advoc?: Yes Luis Wolf MD Jan 05, 2018 11:08
--- NOTE | 2018-01-05 16:39 | PD.TTN ---
Patient Problems 1. Discharge planning 2. Medication compliance 3. Knowledge deficit 4. Lack of coping skills Progress Toward Goals Provider Present: Dr. Saman Wolf Provider Input: 01/05/2018; Counselor will need to contact patient's to schedule a family meeting 01/05/2018 Nurse(s) Present: TSERING Amezquita Nurse(s) Input: 01/05/2018; patient requires redirection and coaching with care/treatment Psychiatric Counselors Present: VELASQUEZ Thacker Psych Therapist Input: 01/05/2018; counselor has called patient's and schedule family meeting 01/06/2018 Group Spec/RT/OT/FONTENOT Present: CORIE Slaughter Group Spec/RT/OT/FONTENOT Input: 01/05/2018; patient participate with select groups, mainly isolates Documentation Scribe: VELASQUEZ Thacker Sandra LMHC Jan 05, 2018 16:39
[2018-01-05 18:16] VITALS: BP 159/86; PULSE 82; RESP 18; TEMP 98.5; O2SAT 98
[2018-01-06 05:21] VITALS: BP 138/85; PULSE 100; RESP 18; TEMP 98; O2SAT 98
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
[2018-01-06 17:34] VITALS: BP 115/56; PULSE 82; RESP 18; TEMP 97.7; O2SAT 98
[2018-01-07 05:40] VITALS: BP_SYST 130; BP_SYST 163; BP_DIAS 67; BP_DIAS 88; PULSE 80; PULSE 84; RESP 18; TEMP 98; TEMP 98.1; O2SAT 96
--- NOTE | 2018-01-07 16:11 | HHI.PYPN ---
Subjective Remarks Patient seen in her room with nurse Torrie, chart reviewed, patient discussed with nurse. Patient compliant medications. Patient continues to be no behavioral problems she is, pleasant with us however her delusions remained fixed without significant change in content related to her and this neighbor of theirs. The family still is exploring possible placement for this patient including [place] Review of Systems Except as stated in HPI: all other systems reviewed are Neg Mental Status Examination Appearance: Appropriate Consciousness: Alert Orientation: Person, Place Motor Activity: Other (somewhat shuffling with walker) Speech: Unremarkable Language: Adequate Fund of Knowledge: Adequate Attention and Concentration: Other (fair) Memory: Impaired Mood: Other (euthymic to somewhat irritable) Affect: Other (slight increase range intensity) Thought Process & Associations: Linear Thought Content: Appropriate, Delusional Hallucination Type: None (denies) Delusion Type: Other (jealousy) Suicidal Ideation: No Suicidal Plan: No Suicidal Intention: No Homicidal Ideation: No Homicidal Plan: No Homicidal Intention: No Insight: Poor Judgment: Poor Results Vitals/IOs Vital Signs Date Time Temp Pulse Resp B/P (MAP) Pulse Ox O2 Delivery O2 Flow Rate FiO2 01/07/18 05:40 98.1 80 18 163/88 (113) 96 Intake and Output 01/07/18 01/07/18 01/08/18 08:00 16:00 00:00 Intake Total 240 ml 600 ml Balance 240 ml 600 ml Assessment & Plan Problem List: (1) Delusional disorder ICD Codes: F22 - Delusional disorders (2) DEMENTIA IN OTH DISEASES CLASSD ELSWHR W BEHAVIORAL DISTURB ICD Codes: F02.81 - DEMENTIA IN OTH DISEASES CLASSD ELSWHR W BEHAVIORAL DISTURB (3) ALZHEIMER'S DISEASE WITH LATE ONSET ICD Codes: G30.1 - ALZHEIMER'S DISEASE WITH LATE ONSET Assessment & Plan Estimated LOS: days patient remains confused demented and delusional. Though no behavioral problems. Justification for Cont. Inpt. At this time patient with decompensated placed in a lower level of care Discharge Planning Continue to work with family on placement issues Request HC Surrog/Guard Advoc?: Yes Luis Wolf MD Jan 07, 2018 16:11
[2018-01-07 18:00] VITALS: BP 138/68; PULSE 87; RESP 17; TEMP 98.4; O2SAT 96
[2018-01-07] MEDS: MAGNESIUM HYDROXIDE SUSP 30 ML CUP PO PRN (21:30)
[2018-01-08 05:46] VITALS: BP 126/60; PULSE 76; RESP 16; TEMP 97.5; O2SAT 97
--- NOTE | 2018-01-08 09:57 | HHI.PYPN ---
Subjective Remarks Patient seen in [employer] [facility] with patient's and son. Case was continued 4 weeks by Endocrinology Specialist Halle with to be health care surrogate. Patient did testify in court continues with the delusions related to her 's infidelity and relationships with the strange woman. He should seen after court on the unit with nurse Zohaib patient continues to verify the delusions. Showing no insight into the decisions her testimony made in the court for now continue treatment. Family continues to work on finding appropriate placement Review of Systems Except as stated in HPI: all other systems reviewed are Neg Mental Status Examination Appearance: Appropriate Consciousness: Alert Orientation: Person, Place Motor Activity: Other (somewhat shuffling with walker) Speech: Unremarkable Language: Adequate Fund of Knowledge: Adequate Attention and Concentration: Other (fair) Memory: Impaired Mood: Other (euthymic to somewhat irritable) Affect: Other (slight increase range intensity) Thought Process & Associations: Linear Thought Content: Appropriate, Delusional Hallucination Type: None (denies) Delusion Type: Other (jealousy) Suicidal Ideation: No Suicidal Plan: No Suicidal Intention: No Homicidal Ideation: No Homicidal Plan: No Homicidal Intention: No Insight: Poor Judgment: Poor Results Vitals/IOs Vital Signs Date Time Temp Pulse Resp B/P (MAP) Pulse Ox O2 Delivery O2 Flow Rate FiO2 01/08/18 05:46 97.5 76 16 126/60 (82) 97 Intake and Output 01/08/18 01/08/18 01/09/18 08:00 16:00 00:00 Intake Total 240 ml Balance 240 ml Assessment & Plan Problem List: (1) Delusional disorder ICD Codes: F22 - Delusional disorders (2) DEMENTIA IN OTH DISEASES CLASSD ELSWHR W BEHAVIORAL DISTURB ICD Codes: F02.81 - DEMENTIA IN OTH DISEASES CLASSD ELSWHR W BEHAVIORAL DISTURB (3) ALZHEIMER'S DISEASE WITH LATE ONSET ICD Codes: G30.1 - ALZHEIMER'S DISEASE WITH LATE ONSET Assessment & Plan Estimated LOS: days patient continues to into confused and delusional. Was seen in [employer] [facility] court and case continued for 4 weeks. For now continue treatment Justification for Cont. Inpt. This time patient will decompensate place a lower level of care Discharge Planning Family working and placement issues Request HC Surrog/Guard Advoc?: Yes Luis Wolf MD Jan 08, 2018 09:57
[2018-01-08 17:22] VITALS: BP 131/67; PULSE 88; RESP 16; TEMP 97.8; O2SAT 96
[2018-01-08] MEDS: MAGNESIUM HYDROXIDE SUSP 30 ML CUP PO PRN (21:32)
[2018-01-09 06:13] VITALS: BP 130/80; PULSE 86; RESP 16; TEMP 97.9; O2SAT 97
--- NOTE | 2018-01-09 11:58 | HHI.PYPN ---
Subjective Remarks Patient seen in day room nurse Zohaib rose counselor Michell, chart review, patient compliant medications. Patient discussed with nurse. Patient continues calm cooperative though confused at times disoriented. Her delusional ideation related to her and his behavior persists unchanged. However because these delusions are somewhat circumscribed patient is no behavior problem. When considering also the cognitive issues with this lady I question whether an antipsychotic would be indicated of treatment delusions in an 87-year-old lady who continue to consider medication options Review of Systems Except as stated in HPI: all other systems reviewed are Neg Mental Status Examination Appearance: Appropriate Consciousness: Alert Orientation: Person, Place Motor Activity: Other (somewhat shuffling with walker) Speech: Unremarkable Language: Adequate Fund of Knowledge: Adequate Attention and Concentration: Other (fair) Memory: Impaired Mood: Other (euthymic to somewhat irritable) Affect: Other (slight increase range intensity) Thought Process & Associations: Linear Thought Content: Appropriate, Delusional Hallucination Type: None (denies) Delusion Type: Other (jealousy) Suicidal Ideation: No Suicidal Plan: No Suicidal Intention: No Homicidal Ideation: No Homicidal Plan: No Homicidal Intention: No Insight: Poor Judgment: Poor Results Vitals/IOs Vital Signs Date Time Temp Pulse Resp B/P (MAP) Pulse Ox O2 Delivery O2 Flow Rate FiO2 01/09/18 06:13 97.9 86 16 130/80 (97) 97 Intake and Output 01/09/18 01/09/18 01/10/18 08:00 16:00 00:00 Intake Total 360 ml 240 ml Balance 360 ml 240 ml Assessment & Plan Problem List: (1) Delusional disorder ICD Codes: F22 - Delusional disorders (2) DEMENTIA IN OTH DISEASES CLASSD ELSWHR W BEHAVIORAL DISTURB ICD Codes: F02.81 - DEMENTIA IN OTH DISEASES CLASSD ELSWHR W BEHAVIORAL DISTURB (3) ALZHEIMER'S DISEASE WITH LATE ONSET ICD Codes: G30.1 - ALZHEIMER'S DISEASE WITH LATE ONSET Assessment & Plan Estimated LOS: days patient continues confused delusional demented, but no significant behavioral problems. For now continue treatment Justification for Cont. Inpt. At this time patient will decompensate if placed on lower level of care Discharge Planning Placement needs to be determined working conjunction with family Request HC Surrog/Guard Advoc?: Yes Luis Wolf MD Jan 09, 2018 11:58
[2018-01-09 16:16] VITALS: BP 141/81; PULSE 77; RESP 16; TEMP 97.4; O2SAT 95
[2018-01-09] MEDS: MAGNESIUM HYDROXIDE SUSP 30 ML CUP PO PRN (20:51)
[2018-01-10 06:18] VITALS: BP 145/68; PULSE 86; RESP 16; TEMP 97.7; O2SAT 95
--- NOTE | 2018-01-10 17:11 | HHI.PYPN ---
Subjective Remarks Patient was seen and case discussed with nursing. Patient continues with a fixed delusion that her is having an affair. She is confused with dates and details of a story. Behaving well on the unit. Compliant with medications Mental Status Examination Appearance: Appropriate Consciousness: Alert Orientation: Person, Place Motor Activity: Other (somewhat shuffling with walker) Speech: Unremarkable Language: Adequate Fund of Knowledge: Adequate Attention and Concentration: Other (fair) Memory: Impaired Mood: Other (euthymic to somewhat irritable) Affect: Other (slight increase range intensity) Thought Process & Associations: Linear Thought Content: Appropriate, Delusional Hallucination Type: None (denies) Delusion Type: Other (jealousy) Suicidal Ideation: No Suicidal Plan: No Suicidal Intention: No Homicidal Ideation: No Homicidal Plan: No Homicidal Intention: No Insight: Poor Judgment: Poor Results Vitals/IOs Vital Signs Date Time Temp Pulse Resp B/P (MAP) Pulse Ox O2 Delivery O2 Flow Rate FiO2 01/10/18 06:18 97.7 86 16 145/68 (93) 95 Intake and Output 01/10/18 01/10/18 01/11/18 08:00 16:00 00:00 Intake Total 0 ml 240 ml Balance 0 ml 240 ml Assessment & Plan Problem List: (1) Delusional disorder ICD Codes: F22 - Delusional disorders (2) DEMENTIA IN OTH DISEASES CLASSD ELSWHR W BEHAVIORAL DISTURB ICD Codes: F02.81 - DEMENTIA IN OTH DISEASES CLASSD ELSWHR W BEHAVIORAL DISTURB (3) ALZHEIMER'S DISEASE WITH LATE ONSET ICD Codes: G30.1 - ALZHEIMER'S DISEASE WITH LATE ONSET Assessment & Plan Continue current treatment plan Justification for Cont. Inpt. Patient would decompensate in a less restrictive setting Request HC Surrog/Guard Advoc?: Yes Mati Murdock DO Jan 10, 2018 17:11
[2018-01-10 18:28] VITALS: BP 135/70; PULSE 85; RESP 18; TEMP 98.3; O2SAT 98
[2018-01-11 06:00] VITALS: BP 144/67; PULSE 69; RESP 16; TEMP 98.2; O2SAT 98
--- NOTE | 2018-01-11 14:08 | HHI.PYPN ---
Subjective Remarks Patient was seen and case discussed with nursing. Patient remains quite psychotic. 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 Continues to be confused about her 's infidelity thought process is loose Mental Status Examination Appearance: Appropriate Consciousness: Alert Orientation: Person, Place Motor Activity: Other (somewhat shuffling with walker) Speech: Unremarkable Language: Adequate Fund of Knowledge: Adequate Attention and Concentration: Other (fair) Memory: Impaired Mood: Other (euthymic to somewhat irritable) Affect: Other (slight increase range intensity) Thought Process & Associations: Linear Thought Content: Appropriate, Delusional Hallucination Type: None (denies) Delusion Type: Other (jealousy) Suicidal Ideation: No Suicidal Plan: No Suicidal Intention: No Homicidal Ideation: No Homicidal Plan: No Homicidal Intention: No Insight: Poor Judgment: Poor Results Vitals/IOs Vital Signs Date Time Temp Pulse Resp B/P (MAP) Pulse Ox O2 Delivery O2 Flow Rate FiO2 01/11/18 06:00 98.2 69 16 144/67 (92) 98 Intake and Output 01/11/18 01/11/18 01/12/18 08:00 16:00 00:00 Intake Total 1120 ml Balance 1120 ml Assessment & Plan Problem List: (1) Delusional disorder ICD Codes: F22 - Delusional disorders (2) DEMENTIA IN OTH DISEASES CLASSD ELSWHR W BEHAVIORAL DISTURB ICD Codes: F02.81 - DEMENTIA IN OTH DISEASES CLASSD ELSWHR W BEHAVIORAL DISTURB (3) ALZHEIMER'S DISEASE WITH LATE ONSET ICD Codes: G30.1 - ALZHEIMER'S DISEASE WITH LATE ONSET Assessment & Plan Continue current treatment plan Justification for Cont. Inpt. Patient would decompensate in a less restrictive setting Request HC Surrog/Guard Advoc?: Yes Mati Murdock DO Jan 11, 2018 14:08
[2018-01-11 17:58] VITALS: BP 141/69; PULSE 92; RESP 16; TEMP 97.8; O2SAT 99
[2018-01-12 05:14] VITALS: BP 141/65; PULSE 96; RESP 18; TEMP 98.5; O2SAT 99
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
[2018-01-12 18:03] VITALS: BP 135/73; PULSE 100; RESP 18; TEMP 97.8; O2SAT 99
[2018-01-13 06:00] VITALS: BP 140/67; PULSE 79; RESP 18; TEMP 98.7
[2018-01-13] MEDS ORDERED: LORA-392 PO (10:46)
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
== END 2018-01-13 14:15 | DRG 57 ==
LOC: NEPC 18:16 → NEDA 12-30 18:41 → H250 12-30 19:39
PROVIDERS: ADMIT Psychiatry & Neurology Psychiatry; ATTEND Psychiatry & Neurology Psychiatry
DX: G30.1 Alzheimer's disease with late onset (principal); F02.81 Dementia in other diseases classified elsewhere, unspecified severity, with behavioral disturbance; E11.22 Type 2 diabetes mellitus with diabetic chronic kidney disease; F22 Delusional disorders; N18.2 Chronic kidney disease, stage 2 (mild); K21.9 Gastro-esophageal reflux disease without esophagitis; I25.2 Old myocardial infarction; I12.9 Hypertensive chronic kidney disease with stage 1 through stage 4 chronic kidney disease, or unspecified chronic kidney disease; E78.5 Hyperlipidemia, unspecified; M19.90 Unspecified osteoarthritis, unspecified site; Z88.5 Allergy status to narcotic agent
CPT/HCPCS: 80048; 80053; 80061; 80307; 81001; 83036; 84443; 85025; 93005; 99285

== ENCOUNTER 2018-10-07 02:15 | Inpatient (IN) ==
--- NOTE | 2018-10-07 02:43 | ED ---
HPI General Chief complaint: Fall Stated complaint: Fall Time Seen by Provider: 10/07/18 02:27 Source: patient Mode of arrival: EMS Limitations: no limitations History of Present Illness HPI narrative: The patient is an 87 year old female who presents to the [facility] emergency department with a history of falling prior to arrival. The patient reports that she tripped over an AC rate in the floor. She reports that she landed on her right side and now has right hip pain. The patient additionally reported to ambulance services that she has back pain. The patient has chronic back pain, however she reports that it is worse. She denies having any numbness or tingling to her arms or legs, or weakness of her arms or legs. When asked about the patient's medications, she reports that she does not take any. The patient additionally reports that she does not know of any medical problems that she reports that she does not normally pay attention to any of that. The patient reports that since she fell she has tightening sensation in her chest with shortness of breath. She is unsure whether she has any cardiac history, or history of a heart murmur. On review of systems otherwise, the patient denies having any known recent fevers, cough, congestion , abdominal pain, vomiting, diarrhea, urinary symptoms, or other neurologic symptoms. Related Data Home Medications Medication Instructions Recorded Confirmed No Known Home Medications 10/07/18 10/07/18 Allergies Allergy/AdvReac Type Severity Reaction Status Date / Time codeine Allergy Severe Unverified 12/29/17 22:10 estradiol Allergy Severe Unverified 12/29/17 22:10 estrogens, conjugated Allergy Severe Unverified 12/29/17 22:10 fexofenadine Allergy Severe Unverified 12/29/17 22:10 prednisone AdvReac Severe Verified 12/29/17 22:10 Review of Systems ROS: all other systems reviewed are negative PMFSH Medical History Medical History Chronic kidney disease (Acute) Diabetes (Acute) Hypertension (Acute) Hyperuricemia (Acute) Surgical History Surgical History H/O partial thyroidectomy (Acute) History of cholecystectomy (Acute) History of repair of hiatal hernia (Acute) Social History Social History Substance History: No History of Abuse Second Hand Smoke Exposure: No Smoking Status: Never smoker How Often Do You Have a Drink Containing Alcohol: Never Exam Narrative Exam Narrative: General: The patient is a well-developed well-nourished female in no acute distress, reporting right lateral hip pain. The patient is was brought in by ambulance services without a cervical collar as a cervical collar that they had with the patient. The patient was placed in a small cervical collar on arrival to this facility. Head and Neck exam: Head is normocephalic atraumatic. No facial bone tenderness or increased facial bone mobility noted on palpation. Eyes: EOMI, pupils are equal round and reactive to light. Nose: Midline septum with pink mucous membranes Mouth: Dentition unremarkable. Moist mucus membranes. Posterior oropharynx is not erythematous. No tonsillar hypertrophy. Uvula midline. Airway patent. Neck: The patient is immobilized in a cervical collar. No tracheal deviation. The trachea appears midline. Cardiovascular: Tachycardia with a rate in the low 100s noted with a 1/6 systolic murmur, no gallops or rubs. No pulse deficit to the extremities on simultaneous auscultation and palpation of her radial artery. Lungs: Clear to auscultation bilaterally. No wheezes, rhonchi, or rales. No chest wall tenderness to palpation. No erythema or ecchymosis noted. No crepitus , step off, or flail segment noted. Abdomen: Soft, without tenderness to palpation in all 4 quadrants of the abdomen. No guarding, rebound, or rigidity. No erythema or ecchymosis noted. Extremities: No instability or pain noted on pelvic rock. No clubbing, cyanosis , or edema. 2+ pulses in all 4 extremities. No extremity tenderness or deformity noted on palpation or passive/ active range of motion, except in the area of interest, the right hip, the patient reports tenderness on palpation along the proximal right lateral hip. There is no erythema or ecchymosis. No step-off or crepitus. The patient is able to flex her hip, however she does have pain with internal or external rotation. There is no shortening or rotation noted. Back: No spinous process tenderness to palpation, however the patient reports paraspinal muscle tenderness on palpation throughout the thoracic and lumbar spine bilaterally. No stepoff or crepitus noted. No costovertebral angle tenderness to palpation. No erythema or ecchymosis. Neurologic Exam: Cranial nerves 2-12 were intact on exam. Strength is 5/5 in all 4 extremities. No sensory deficits noted. Skin Exam: No rash noted. Intact skin that is warm and dry. Course Initial Documented Vital Signs Pulse Oximetry 98 10/07/18 02:35 Last Documented Vital Signs Temperature 98.7 F 10/07/18 02:40 Pulse Rate 104 H 10/07/18 02:40 Respiratory Rate 15 10/07/18 02:40 Blood Pressure 139/78 10/07/18 02:40 Pulse Oximetry 98 10/07/18 02:35 Medical Decision Making MDM Narrative Medical decision making narrative: During the course of the patient's emergency department visit, the patient's history, examination, and differential diagnosis were reviewed with the patient. The patient was placed on a casting trucker with oximetry and frequent blood pressure monitoring. The patient had IV access obtained and blood work sent for analysis. A diagnostic evaluation was started regarding the patient's fall with right hip pain. The patient was initially provided normal saline IV fluids, morphine 2 mg IV for pain, Zofran 4 mg IV for nausea. The patient's diagnostic studies are remarkable for a white count of 16.1, hemoglobin 11.2, platelets 214 with neutrophil percent 82, PT 10.3, PTT 29.1, chemistry is remarkable for a BUN of 40, creatinine 1.61, glucose 127, calcium 8.3, lipase 166, BNP is 544. CHEST X-RAY: Shows interstitial prominence which could represent early interstitial edema, no dense consolidation or effusion. Right hip and pelvis x-ray showed no acute findings. CT scan of the head showed no acute findings, CT scan of the C-spine shows no acute abnormality. CT scan of the T-spine shows no acute abnormality. CT scan of the lumbar spine shows no acute abnormality. CT scan of the pelvis revealed probable nondisplaced fracture through the outer cortex of the right femoral neck, best seen on the coronal visit images, no other acute fracture identified. The patient's case including history, pertinent physical examination findings, and laboratory studies were discussed with Dr. Rosales. It was agreed that the patient would be admitted to the hospitalist service. The patient's case was also discussed with Dr. Bazan who requested that the patient be placed n.p.o. The patient's results were discussed with the patient, including the plan of care. I explained that further testing and/ or monitoring is indicated based on the patient's history, examination, and/ or laboratory findings. Therefore, I recommended admission for additional evaluation. The patient expressed understanding and was agreeable with this plan. The patient was admitted to the hospital in guarded condition and sent to a bed under the care of the [facility] service. Medical Screen Exam Complete: Yes Emergency Medical Condition: Yes Differential Diagnosis Differential Diagnosis: Intracranial trauma, versus cervical spine trauma, versus pelvis trauma, versus hip fracture, versus hip dislocation, versus acute coronary syndrome, versus rib fracture Medical Records Medical records reviewed: Yes I reviewed the patient's medical records. Lab Data Lab results reviewed: Yes I reviewed the patient's lab results. Result diagrams: 10/07/18 02:50 10/07/18 02:50 Lab Results 10/07/18 10/07/18 10/07/18 Range/Units 02:50 02:50 02:50 WBC 16.1 H (4.0-11.0) th/mm3 RBC 4.30 (4.00-5.30) mil/mm3 Hgb 11.2 L (11.6-15.3) gm/dL Hct 33.5 L (35.0-46.0) % MCV 77.8 L (80.0-100.0) fL MCH 26.1 L (27.0-34.0) pg MCHC 33.5 (32.0-36.0) % RDW 15.3 (11.6-17.2) % Plt Count 214 (150-450) th/mm3 MPV 8.7 (7.0-11.0) fL Neut % (Auto) 82.0 H (16.0-70.0) % Lymph % (Auto) 9.7 (9.0-44.0) % Trinity % (Auto) 4.2 (0.0-8.0) % Eos % (Auto) 3.7 (0.0-4.0) % Baso % (Auto) 0.4 (0.0-2.0) % Neut # (Auto) 13.2 H (1.8-7.7) th/mm3 Lymph # (Auto) 1.6 (1.0-4.8) th/mm3 Trinity # (Auto) 0.7 (0.0-0.9) th/mm3 Eos # (Auto) 0.6 H (0.0-0.4) th/mm3 Baso # (Auto) 0.1 (0.0-0.2) th/mm3 WBC Differential . Differential Comment Auto diff final PT (9.8-11.6) sec INR Ratio APTT (23.4-31.7) sec Sodium 137 (136-145) meq/L Potassium 4.0 (3.5-5.1) meq/L Chloride 107 (98-107) meq/L Carbon Dioxide 21.3 (21.0-32.0) meq/L Anion Gap 9 (5-15) meq/L BUN 40 H (7-18) mg/dL Creatinine 1.61 H (0.50-1.00) mg/dL Estimated GFR 30 L (>89) mL/min Random Glucose 127 H (74-106) mg/dL Calcium 8.3 L (8.5-10.1) mg/dL Magnesium 2.2 (1.5-2.5) mg/dL Total Bilirubin 0.3 (0.2-1.0) mg/dL AST 20 (15-37) U/L ALT 17 (10-53) U/L Alkaline Phosphatase 92 (45-117) U/L Total Creatine Kinase 74 (26-192) U/L Troponin I 0.04 (0.02-0.05) ng/mL B-Natriuretic Peptide 544 H (0-100) pg/mL Total Protein 7.2 (6.4-8.2) g/dL Albumin 3.5 (3.4-5.0) g/dL Lipase 166 (73-393) U/L 10/07/18 Range/Units 02:50 WBC (4.0-11.0) th/mm3 RBC (4.00-5.30) mil/mm3 Hgb (11.6-15.3) gm/dL Hct (35.0-46.0) % MCV (80.0-100.0) fL MCH (27.0-34.0) pg MCHC (32.0-36.0) % RDW (11.6-17.2) % Plt Count (150-450) th/mm3 MPV (7.0-11.0) fL Neut % (Auto) (16.0-70.0) % Lymph % (Auto) (9.0-44.0) % Trinity % (Auto) (0.0-8.0) % Eos % (Auto) (0.0-4.0) % Baso % (Auto) (0.0-2.0) % Neut # (Auto) (1.8-7.7) th/mm3 Lymph # (Auto) (1.0-4.8) th/mm3 Trinity # (Auto) (0.0-0.9) th/mm3 Eos # (Auto) (0.0-0.4) th/mm3 Baso # (Auto) (0.0-0.2) th/mm3 WBC Differential Differential Comment PT 10.3 (9.8-11.6) sec INR 1.0 Ratio APTT 29.1 (23.4-31.7) sec Sodium (136-145) meq/L Potassium (3.5-5.1) meq/L Chloride (98-107) meq/L Carbon Dioxide (21.0-32.0) meq/L Anion Gap (5-15) meq/L BUN (7-18) mg/dL Creatinine (0.50-1.00) mg/dL Estimated GFR (>89) mL/min Random Glucose (74-106) mg/dL Calcium (8.5-10.1) mg/dL Magnesium (1.5-2.5) mg/dL Total Bilirubin (0.2-1.0) mg/dL AST (15-37) U/L ALT (10-53) U/L Alkaline Phosphatase (45-117) U/L Total Creatine Kinase (26-192) U/L Troponin I (0.02-0.05) ng/mL B-Natriuretic Peptide (0-100) pg/mL Total Protein (6.4-8.2) g/dL Albumin (3.4-5.0) g/dL Lipase (73-393) U/L Imaging Data Radiologist's impression: Cervical Spine CT 10/07/18 02:43 CONCLUSION: 1. Negative for acute traumatic injury in the cervical spine. No significant canal stenosis. Chest X-Ray 10/07/18 02:43 CONCLUSION: Interstitial prominence could represent early interstitial edema. No dense consolidation or effusion. Head CT 10/07/18 02:43 CONCLUSION: 1. No acute findings. Chronic appearing white matter ischemic changes, worse on the right. . Hip X-Ray 10/07/18 02:43 CONCLUSION: No acute findings. Lumbar Spine CT 10/07/18 02:44 CONCLUSION: 1. No acute findings. Osteopenia. Normal alignment. Thoracic Spine CT 10/07/18 02:44 CONCLUSION: 1. No acute fracture. No significant bony canal stenosis. Pelvis CT 10/07/18 03:28 CONCLUSION: 1. Probable nondisplaced fracture through the outer cortex of the right femoral neck best seen on the coronal images. No other fracture identified. ECG Data Attestation: I personally reviewed and interpreted this ECG as follows: Interpretation: The patient had an EKG done on arrival that was read by the computer as showing A. fib with RVR, however P waves appear to be present, therefore I suspect that this is a sinus tachycardia, rate of 111, QRS duration 97 ms, QTC 388 ms. The patient has ST segment depression noted in V4, V5, V6, lead I, 2, aVF. T waves are inverted in lead II, 3, aVF. Repeat EKG after pain was better controlled was done and revealed a heart rate of 86, sinus rhythm, QRS duration 96 ms, QTC [address] segments in leads II , 3, aVF, V4, V5, V6. Discharge Plan Discharge Disposition Patient Disposition: 30 Still Patient Discharge Details Diagnosis: Fall, Chest pain, Femoral neck fracture Physicians Team ED Provider: Kenisha Newman Primary Care Provider: UNKNOWN, Attending Provider: Timbo Zazueta Other Providers: Heath Bazan Status ED Status: Admitted Patient
[2018-10-07] MEDS ORDERED: Morphine Inj 4 MG/ML Vial IV.PUSH ONE ×2 (02:45→05:12)
[2018-10-07] MEDS ORDERED: Sodium Chlor 0.9% Inj 500 ML IV.SIG ONE (02:45)
[2018-10-07 03:11] LABS: Baso # (Auto) 0.1 th/mm3 (0.0-0.2); Baso % (Auto) 0.4 % (0.0-2.0); Eos # (Auto) 0.6 th/mm3 (0.0-0.4); Eos % (Auto) 3.7 % (0.0-4.0); Hematocrit 33.5 % (35.0-46.0); Hemoglobin 11.2 gm/dL (11.6-15.3); Lymph # (Auto) 1.6 th/mm3 (1.0-4.8); Lymph % (Auto) 9.7 % (9.0-44.0); Mean Corpuscular HGB Conc 33.5 % (32.0-36.0); Mean Corpuscular Hemoglobin 26.1 pg (27.0-34.0); Mean Corpuscular Volume 77.8 fL (80.0-100.0); Mean Platelet Volume 8.7 fL (7.0-11.0); Mono # (Auto) 0.7 th/mm3 (0.0-0.9); Mono % (Auto) 4.2 % (0.0-8.0); Neut # (Auto) 13.2 th/mm3 (1.8-7.7); Platelet Count 214 th/mm3 (150-450); Red Cell Distribution Width 15.3 % (11.6-17.2); White Blood Count 16.1 th/mm3 (4.0-11.0)
[2018-10-07 03:27] LABS: Alanine Aminotransferase 17 U/L (10-53); Albumin 3.5 g/dL (3.4-5.0); Anion Gap 9 meq/L (5-15); Aspartate Aminotransferase 20 U/L (15-37); Blood Urea Nitrogen 40 mg/dL (7-18); Calcium 8.3 mg/dL (8.5-10.1); Carbon Dioxide 21.3 meq/L (21.0-32.0); Chloride 107 meq/L (98-107); Glomerular Filtration Rate 30 mL/min (>89); Glucose,Random 127 mg/dL (74-106); Lipase 166 U/L (73-393); Magnesium 2.2 mg/dL (1.5-2.5); Sodium 137 meq/L (136-145)
[2018-10-07 03:31] LABS: Alkaline Phosphatase 92 U/L (45-117); Total Protein 7.2 g/dL (6.4-8.2); Troponin I 0.04 ng/mL (0.02-0.05)
[2018-10-07 03:35] LABS: Creatine Kinase 74 U/L (26-192)
--- NOTE | 2018-10-07 03:37 | XR ---
EXAM DATE: 10/07/2018 3:22 AM EST AGE/SEX: 87 years / Female INDICATIONS: Short of breath,fall. CLINICAL DATA: This is the patient's initial encounter. Patient reports that signs and symptoms have been present for 1 day and indicates a pain score of 0/10. MEDICAL/SURGICAL HISTORY: None. None. COMPARISON: [facility] – [place]ST SINGLE AP, 11/29/2017. . FINDINGS: Heart size enlarged. Mild interstitial prominence. No dense consolidation or significant effusion. No pneumothorax. CONCLUSION: Interstitial prominence could represent early interstitial edema. No dense consolidation or effusion. Electronically signed by: Warren Ortiz MD 10/07/2018 3:35 AM EST
--- NOTE | 2018-10-07 03:39 | XR ---
EXAM DATE: 10/07/2018 3:24 AM EST AGE/SEX: 87 years / Female INDICATIONS: Pain in right hip, fall. CLINICAL DATA: This is the patient's initial encounter. Patient reports that signs and symptoms have been present for 1 day and indicates a pain score of 9/10. MEDICAL/SURGICAL HISTORY: None. None. COMPARISON: No prior exams available for comparison. FINDINGS: Bony structures are intact and in normal alignment. Joints are intact without dislocation or signifi cant arthropathy. Osseous density is normal. Soft tissues are unremarkable. No radiopaque foreign bodies seen. CONCLUSION: No acute findings. Electronically signed by: Warren Ortiz MD 10/07/2018 3:38 AM EST
[2018-10-07 03:40] LABS: Activated Partial Thrombo Time 29.1 sec (23.4-31.7); Prothrombin Time 10.3 sec (9.8-11.6)
--- NOTE | 2018-10-07 03:44 | CT ---
EXAM DATE: 10/07/2018 3:35 AM EST AGE/SEX: 87 years / Female INDICATIONS: Trauma. Fall. CLINICAL DATA: This is the patient's initial encounter. Patient reports that signs and symptoms have been present for 1 day and indicates a pain score of 5/10. MEDICAL/SURGICAL HISTORY: Diabetes mellitus type II. Diabetes mellitus type II. None. RADIATION DOSE: 56.34 CTDI (mGy) COMPARISON: No prior exams available for comparison. TECHNIQUE: CT of the head without contrast. Using automated exposure control and adjustment of the mA and/or kV according to patient size, radiation dose was kept as low as reasonably achievable to ob tain optimal diagnostic quality images. DICOM format image data is available electronically for revi ew and comparison. FINDINGS: Cerebrum: The ventricles are normal for age. No evidence of midline shift, mass lesion, hemorrhage or acute infarction. No extraaxial fluid collections are seen. Chronic appearing white matter ischem ic changes. Posterior Fossa: The cerebellum and brainstem are intact. The 4th ventricle is midline. The cerebe llopontine angle is unremarkable. Extracranial: The visualized portion of the orbits is intact. Skull: The calvaria is intact. No evidence of skull fracture. CONCLUSION: 1. No acute findings. Chronic appearing white matter ischemic changes, worse on the right. . Electronically signed by: Warren Ortiz MD 10/07/2018 3:43 AM EST
--- NOTE | 2018-10-07 03:46 | CT ---
EXAM DATE: 10/07/2018 3:37 AM EST AGE/SEX: 87 years / Female INDICATIONS: Trauma. Fall. CLINICAL DATA: This is the patient's initial encounter. Patient reports that signs and symptoms have been present for 1 day and indicates a pain score of 5/10. MEDICAL/SURGICAL HISTORY: Diabetes mellitus type II. Hypertension. None. RADIATION DOSE: 16.35 CTDI (mGy) COMPARISON: No prior exams available for comparison. TECHNIQUE: Contiguous axial images were obtained using helical multirow detector technique. The vol umetric data was post-processed with multiplanar reconstruction in oblique axial, sagittal, and coron al planes. Using automated exposure control and adjustment of the mA and/or kV according to patient s ize, radiation dose was kept as low as reasonably achievable to obtain optimal diagnostic quality magdiel ges. DICOM format image data is available electronically for review and comparison. FINDINGS: There is a mild levoscoliosis. Bones are osteopenic. No prevertebral soft tissue swelling. No signifi cant canal stenosis. No fracture or spondylolisthesis. Postoperative removal right lobe thyroid. 1 cm nodule left lobe thyroid. CONCLUSION: 1. Negative for acute traumatic injury in the cervical spine. No significant canal stenosis. Electronically signed by: Warren Ortiz MD 10/07/2018 3:44 AM EST
--- NOTE | 2018-10-07 04:30 | CT ---
EXAM DATE: 10/07/2018 3:56 AM EST AGE/SEX: 87 years / Female INDICATIONS: Trauma. Fall. CLINICAL DATA: This is the patient's initial encounter. Patient reports that signs and symptoms have been present for 1 day and indicates a pain score of 5/10. MEDICAL/SURGICAL HISTORY: Diabetes mellitus type II. Hypertension. None. RADIATION DOSE: 12.31 CTDI (mGy) COMPARISON: No prior exams available for comparison. TECHNIQUE: Contiguous axial images were acquired with a multirow detector CT scanner without contras t. Multiplanar reconstructions in the sagittal and coronal plane were also performed. Using automate d exposure control and adjustment of the mA and/or kV according to patient size, radiation dose was k ept as low as reasonably achievable to obtain optimal diagnostic quality images. DICOM format image data is available electronically for review and comparison. FINDINGS: Bones are osteopenic. Hemangioma in L3. No fracture or spondylolisthesis. No significant bony canal s tenosis. CONCLUSION: 1. No acute findings. Osteopenia. Normal alignment. Electronically signed by: Warren Ortiz MD 10/07/2018 4:28 AM EST
--- NOTE | 2018-10-07 04:42 | CT ---
EXAM DATE: 10/07/2018 3:58 AM EST AGE/SEX: 87 years / Female INDICATIONS: Trauma. Fall. CLINICAL DATA: This is the patient's initial encounter. Patient reports that signs and symptoms have been present for 1 day and indicates a pain score of 5/10. MEDICAL/SURGICAL HISTORY: Diabetes mellitus type II. Hypertension. None. RADIATION DOSE: 12.31 CTDI (mGy) ; Combined studies COMPARISON: No prior exams available for comparison. TECHNIQUE: Contiguous axial images were acquired using a multirow detector CT scanner without contra st. Multiplanar reconstruction in the sagittal and coronal planes was performed. Using automated exp osure control and adjustment of the mA and/or kV according to patient size, radiation dose was kept a s low as reasonably achievable to obtain optimal diagnostic quality images. DICOM format image data is available electronically for review and comparison. FINDINGS: There is mild kyphoscoliosis. No acute fracture identified. No significant bony canal stenosis. No fr acture or spondylolisthesis. Incidental note made of small bilateral pleural effusions. CONCLUSION: 1. No acute fracture. No significant bony canal stenosis. Electronically signed by: Warren Ortiz MD 10/07/2018 4:40 AM EST
--- NOTE | 2018-10-07 04:48 | CT ---
EXAM DATE: 10/07/2018 3:55 AM EST AGE/SEX: 87 years / Female INDICATIONS: Trauma. Fall. CLINICAL DATA: This is the patient's initial encounter. Patient reports that signs and symptoms have been present for 1 day and indicates a pain score of 8/10. MEDICAL/SURGICAL HISTORY: Diabetes mellitus type II. Hypertension. None. RADIATION DOSE: 9.96 CTDI (mGy) COMPARISON: No prior exams available for comparison. TECHNIQUE: Multiple contiguous axial images were obtained through the pelvis without contrast. Imag es were obtained using multiple row detector helical technique. . Using automated exposure control an d adjustment of the mA and/or kV according to patient size, radiation dose was kept as low as reasona lu achievable to obtain optimal diagnostic quality images. DICOM format image data is available jeni ctronically for review and comparison. FINDINGS: There appears to be a nondisplaced fracture through the outer cortex of the femoral neck. This is not seen to extend into the remainder of the femoral neck. No dislocation. No other pelvic fractures are identified. CONCLUSION: 1. Probable nondisplaced fracture through the outer cortex of the right femoral neck best seen on th e coronal images. No other fracture identified. Electronically signed by: Warren Ortiz MD 10/07/2018 4:46 AM EST
[2018-10-07] MEDS ORDERED: Bisacodyl 10 MG Supp RECTAL PRN ×2 (05:39→10:22)
[2018-10-07] MEDS ORDERED: Acetaminophen 325 MG Tablet PO PRN (05:39)
--- NOTE | 2018-10-07 09:45 | ECG ---
Date Performed: 10/07/2018 Time Performed: 05:02:07 PTAGE: 87 years EKG: Sinus rhythm WITH FIRST DEGREE AV BLOCK LEFT VENTRICULAR HYPERTROPHY AND ST-T CHANGE ABNORMAL ECG PREVIOUS TRACING : 10/07/2018 05.01 DOCTOR: Andrew Johnson Interpretating Date/Time 10/07/2018 09:43:13
--- NOTE | 2018-10-07 09:46 | ECG ---
Date Performed: 10/07/2018 Time Performed: 02:21:00 PTAGE: 87 years EKG: Probable sinus tachycardia versus atrial flutter with 2-1 block MINIMAL VOLTAGE CRITERIA FO R LVH, CONSIDER NORMAL VARIANT MARKED ST DEPRESSION, CONSIDER SUBENDOCARDIAL INJURY ABNORMAL ECG NO PREVIOUS TRACING DOCTOR: Andrew Johnson Interpretating Date/Time 10/07/2018 09:44:58
[2018-10-07] MEDS ORDERED: Morphine Inj 4 MG/ML Vial IV.PUSH PRN ×2 (10:19)
[2018-10-07] MEDS ORDERED: oxyCODONE/Acetaminophen 10/325 Tablet PO PRN (10:19)
[2018-10-07] MEDS ORDERED: Naloxone Inj 0.4 MG/ML Vial IV.PUSH PRN (10:19)
--- NOTE | 2018-10-07 10:36 | P.HPIM ---
History of Present Illness Service: [facility] Primary Care Physician: UNKNOWN Chief Complaint: STATUS POST FALL DUE TO A TRIP AND FALL History of Present Illness: Patient is a 87-year-old female presented to [facility] emergency department with a history of falling prior to admission. Patient reports that she tripped over AN AC GRATE in the floor. Patient states she landed on her right side now has right hip pain. Patient also reported to ambulance service that she had back pain. Patient states she has chronic back pain. Now reports that it is worse. She denies having any numbness or tingling to her arms or legs or weakness of her arms or legs. When asked about the patient's medications she reports that she does not take any. Patient states that she does not have any known medical problems. Even though chart review says otherwise. Patient reports that she fell she had a tightening sensation in her chest and was short of breath prior to falling. She is unsure whether she had any cardiac history or any murmurs. Or any issues. Patient denies having any recent fevers. She denies any cough, denies any congestion, denies any abdominal pain, denies any vomiting, denies any diarrhea, denies any urinary symptoms. Denies any symptoms. May have some degree of possible dementia Patient was found to have a right femoral neck fracture and will be admitted for pain control and orthopedics to evaluate and hopefully treat the issue. Will make sure she has pain control A.m. labs Trend troponins Discussed with RN and patient - Diagnosis (1) Chronic pain (2) Fall (3) Femoral neck fracture (4) Diabetes (5) Hypertension Inpatient Certification: I certify that the inpatient services were ordered in accordance with Medicare regulations governing the order. 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, 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 - Medical History Medical History: Medical History (Last Updated 10/07/18 @ 10:28 by Timbo Zazueta DO) Diabetes (Acute) Hypertension (Acute) Chronic kidney disease (Acute) Hyperuricemia (Acute) - Surgical History Surgical History: Surgical History (Last Updated 10/07/18 @ 10:28 by Timbo Zazueta DO) H/O partial thyroidectomy (Acute) History of repair of hiatal hernia (Acute) History of cholecystectomy (Acute) - Family History Family History: Family History (Last Updated 10/07/18 @ 10:28 by Timbo Zazueta DO) Other Family history of hypertension - Social History I have reviewed the patient's Social History: Yes - Tobacco History Second Hand Smoke Exposure: No Tobacco Use In Past 30 Days: No Smoking Status: Never smoker - Alcohol History How Often Do You Have a Drink Containing Alcohol: Never - Substance Use History Substance History: No History of Abuse - Travel History History of Recent Travel: No Recent Travel in the [place] Within the Last 8 Weeks: No Recent Travel Out of the Country Within the Last 8 Weeks: No - Immunization History Tetanus Immunization: Unsure Medications and Allergies Active Medications: Active Medications Acetaminophen (Tylenol) 650 mg PO Q4H PRN PRN Reason: Temp > 100.4 Al Hydroxide/Mg Hydroxide (Milk Of Magnesia Liq) 30 ml PO Q12H PRN PRN Reason: Mild Constipation Bisacodyl (Dulcolax Supp) 10 mg RECTAL DAILY PRN PRN Reason: SEVERE CONSITIPATION Bisacodyl (Dulcolax Supp) 10 mg RECTAL DAILY PRN PRN Reason: SEVERE CONSITIPATION Lactulose (Lactulose Liq) 30 ml PO DAILY PRN PRN Reason: SEVERE CONSITIPATION Lactulose (Lactulose Liq) 30 ml PO DAILY PRN PRN Reason: SEVERE CONSITIPATION Morphine Sulfate (Morphine Inj) 2 mg IV.PUSH Q3H PRN PRN Reason: PAIN 3-5; IF UABLE TO TAKE PO Morphine Sulfate (Morphine Inj) 4 mg IV.PUSH Q3H PRN PRN Reason: PAIN 6-10;IF UNABLE TO TAKE PO Morphine Sulfate (Morphine Inj) 4 mg IV.PUSH Q3H PRN PRN Reason: BREAKTHROUGH PAIN Naloxone HCl (Narcan Inj) 0.4 mg IV.PUSH UNSCH PRN PRN Reason: SEE LABEL COMMENTS Ondansetron HCl (Zofran Inj) 4 mg IV.PUSH Q6H PRN PRN Reason: NAUSEA OR VOMITING Oxycodone/Acetaminophen (Percocet 10/325 Mg) 1 tab PO Q6H PRN PRN Reason: PAIN SCALE 6 TO 10 Oxycodone/Acetaminophen (Percocet 5/325 Mg) 1 tab PO Q6H PRN PRN Reason: PAIN SCALE 3 TO 5 Senna/Docusate Sodium (Tracey-Colace) 1 tab PO BID MARY Sennosides (Senokot) 17.2 mg PO Q12H PRN PRN Reason: Moderate Constipation Sodium Chloride (Ns Flush) 2 ml IV.FLUSH UNSCH PRN PRN Reason: FLUSH AFTER USING IV ACCESS Allergies Allergy/AdvReac Type Severity Reaction Status Date / Time codeine Allergy Severe Unverified 12/29/17 22:10 estradiol Allergy Severe Unverified 12/29/17 22:10 estrogens, conjugated Allergy Severe Unverified 12/29/17 22:10 fexofenadine Allergy Severe Unverified 12/29/17 22:10 prednisone AdvReac Severe Verified 12/29/17 22:10 Home Medications Medication Instructions Recorded Confirmed Type No Known Home Medications 10/07/18 10/07/18 History Exam Vital signs: Vital Signs 10/07/18 02:35 10/07/18 02:40 Temperature 98.7 F Pulse Rate 104 H Respiratory Rate 15 Blood Pressure 139/78 Pulse Oximetry 98 Intake & Output 10/06/18 10/07/18 10/07/18 18:59 06:59 18:59 Intake Total 500 / 500 Balance 500 / 500 Weight 63.503 kg Intake: IV 500 / 500 NS Inj 500 ML @ Wide Open IV. 500 / 500 SIG BOLUS ONE Rx#:[id number] Narrative: GENERAL: Awake alert talkative and cooperative she is a well-developed well- nourished female in no acute distress has some pain in the right hip SKIN: Warm and dry. No obvious rashes HEAD: Atraumatic. Normocephalic. No facial bone tenderness or increased facial bone mobility on palpation EYES: Pupils equal and round. No scleral icterus. No injection or drainage. EOMI ENT: No nasal bleeding or discharge. Mucous membranes pink and moist. Tongue is midline oral mucosa is moist oropharynx is clear NECK: Trachea midline. No JVD. Supple trachea is midline CARDIOVASCULAR: Regular rate and rhythm. S1-S2 no S3 or S4 no heave or thrill or rub or gallop RESPIRATORY: No accessory muscle use. Clear to auscultation. Breath sounds equal bilaterally. No rhonchi wheezes or rales GASTROINTESTINAL: Abdomen soft, non-tender, nondistended. Hepatic and splenic margins not palpable. MUSCULOSKELETAL: Extremities without clubbing, cyanosis, or edema. No obvious deformities. Tenderness in the right hip area has pain on internal or external rotation no shortening noted NEUROLOGICAL: Awake and alert. No obvious cranial nerve deficits. Motor grossly within normal limits. Five out of 5 muscle strength in the arms and legs. Normal speech. Cranial nerves II through XII are grossly intact motor strength is 5 out of 5 in upper extremity and left lower extremity has good motor strength right lower extremity but still has pain to the right hip area PSYCHIATRIC: Slightly INappropriate mood and affect; insight and judgment somewhat ABnormal. Results - Labs CBC & Chem 7: 10/07/18 02:50 10/07/18 02:50 Labs: Short CBC 10/07/18 Range/Units 02:50 WBC 16.1 H (4.0-11.0) th/mm3 Hgb 11.2 L (11.6-15.3) gm/dL Hct 33.5 L (35.0-46.0) % Plt Count 214 (150-450) th/mm3 BMP 10/07/18 02:50 Sodium 137 Potassium 4.0 Chloride 107 Carbon Dioxide 21.3 BUN 40 H Creatinine 1.61 H Calcium 8.3 L Cardiac Enzymes 10/07/18 Range/Units 02:50 Total Creatine Kinase 74 (26-192) U/L Troponin I 0.04 (0.02-0.05) ng/mL Liver Function 10/07/18 Range/Units 02:50 Total Bilirubin 0.3 (0.2-1.0) mg/dL AST 20 (15-37) U/L ALT 17 (10-53) U/L Alkaline Phosphatase 92 (45-117) U/L Albumin 3.5 (3.4-5.0) g/dL - Imaging Impressions Cervical Spine CT 10/07/18 02:43 CONCLUSION: 1. Negative for acute traumatic injury in the cervical spine. No significant canal stenosis. Chest X-Ray 10/07/18 02:43 CONCLUSION: Interstitial prominence could represent early interstitial edema. No dense consolidation or effusion. Head CT 10/07/18 02:43 CONCLUSION: 1. No acute findings. Chronic appearing white matter ischemic changes, worse on the right. . Hip X-Ray 10/07/18 02:43 CONCLUSION: No acute findings. Lumbar Spine CT 10/07/18 02:44 CONCLUSION: 1. No acute findings. Osteopenia. Normal alignment. Thoracic Spine CT 10/07/18 02:44 CONCLUSION: 1. No acute fracture. No significant bony canal stenosis. Pelvis CT 10/07/18 03:28 CONCLUSION: 1. Probable nondisplaced fracture through the outer cortex of the right femoral neck best seen on the coronal images. No other fracture identified. Caprini VTE Risk Assessment Caprini VTE Risk Assessment: Moderate/High Risk (score >= 2) Caprini Risk Assessment Model: Point Value = 1 Point Value = 2 Point Value = 3 Point Value = 5 Age 41-60 Minor surgery BMI > 25 kg/m2 Swollen legs Varicose veins or History of unexplained or recurrent spontaneous Oral contraceptives or hormone replacement Sepsis (< 1 month) Serious lung disease, including pneumonia (< 1 month) Abnormal pulmonary function Acute myocardial infarction Congestive heart failure (< 1 month) History of inflammatory bowel disease Medical patient at bed rest Age 61-74 Arthroscopic surgery Major open surgery (> 45 min) Laparoscopic surgery (> 45 min) Malignancy Confined to bed (> 72 hours) Immobilizing plaster cast Central venous access Age >= 75 History of VTE Family history of VTE Factor V Leiden Prothrombin [id number] Lupus anticoagulant Anticardiolipin antibodies Elevated serum homocysteine Heparin-induced thrombocytopenia Other congenital or acquired thrombophilia Stroke (< 1 month) Elective arthroplasty Hip, pelvis, or leg fracture Acute spinal cord injury (< 1 month) Prophylaxis Regimen: Total Risk Factor Score Risk Level Prophylaxis Regimen 0-1 Low Early ambulation 2 Moderate Order ONE of the following: *Sequential Compression Device (SCD) *Heparin 5000 units SQ BID 3-4 Higher Order ONE of the following medications: *Heparin 5000 units SQ TID *Enoxaparin/Lovenox 40 mg SQ daily (WT < 150 kg, CrCl > 30 mL/min) *Enoxaparin/Lovenox 30 mg SQ daily (WT < 150 kg, CrCl > 10-29 mL/min) *Enoxaparin/Lovenox 30 mg SQ BID (WT < 150 kg, CrCl > 30 mL/min) AND/OR *Sequential Compression Device (SCD) 5 or more Highest Order ONE of the following medications: *Heparin 5000 units SQ TID (Preferred with Epidurals) *Enoxaparin/Lovenox 40 mg SQ daily (WT < 150 kg, CrCl > 30 mL/min) *Enoxaparin/Lovenox 30 mg SQ daily (WT < 150 kg, CrCl > 10-29 mL/min) *Enoxaparin/Lovenox 30 mg SQ BID (WT < 150 kg, CrCl > 30 mL/min) AND *Sequential Compression Device (SCD) Assessment and Plan - Assessment (1) Chronic pain Code(s): G89.29 - Other chronic pain Status: Chronic (2) Fall Code(s): W19.XXXA - Unspecified fall, initial encounter Status: Acute (3) Femoral neck fracture Code(s): S72.009A - Fracture of unspecified part of neck of unspecified femur, initial encounter for closed fracture Status: Acute (4) Diabetes Code(s): E11.9 - Type 2 diabetes mellitus without complications Status: Chronic (5) Hypertension Code(s): I10 - Essential (primary) hypertension Status: Chronic - Plan Status post fall with right femoral neck fracture -Consult orthopedic -Trend troponins -We will get an echo -Carotid Dopplers -Pain control Status post fall with gait instability -Physical therapy and occupational therapy to eval and treat -Case management for help with probable placement Chest pain -Trend troponins -Cardiac enzymes -Pain control as needed Hypertension by history we will monitor and make Catapres available as needed blood pressure Diabetes by history we will check sliding scale coverage and Accu-Cheks before meals and at bedtime Chronic kidney disease by history we will monitor kidney functions with a.m. labs and fluids Hyperuricemia we will monitor labs and check uric acid level Leukocytosis will trend CBCs and follow this leukocytosis Renal insufficiency we will follow labs Status post fall will check urinalysis to make sure she does not have urinary tract DVT prophylaxis once cleared by orthopedics GI prophylaxis with Pepcid Code Status: Remains a full code Discussed Condition With: RN and patient Discharge Planning: Pending clearance by orthopedic surgery and cardiac workup is negative (2) Fall Qualifiers: Encounter type: initial encounter Qualified Code(s): W19.XXXA - Unspecified fall, initial encounter (3) Femoral neck fracture Qualifiers: Encounter type: initial encounter Fracture type: closed Laterality: right Qualified Code(s): S72.001A - Fracture of unspecified part of neck of right femur, initial encounter for closed fracture
[2018-10-07] MEDS ORDERED: Dextrose 50% in Water 50 ML Vial IV.PUSH PRN (10:37)
[2018-10-07] MEDS: Morphine Sulfate Inj 2 MG/ML Vial IV.PUSH PRN (10:58)
[2018-10-07] MEDS: Senna/Docusate Sodium 8.6/50 MG Tablet PO SCH ×2 (10:58→21:57)
[2018-10-07 11:19] LABS: Bacteria,Urine Rare /hpf; Bilirubin,Urine Negative (Negative); Clarity,Urine Clear (Clear); Color,Urine Straw (Yellw/Straw); Glucose,Urine (UA) Negative (Negative); Leukocyte Esterase,Urine Negative (Negative); Nitrite,Urine Negative (Negative); Specific Gravity,Urine 1.006 (1.002-1.035); Squamous Epithelial Cell,Urine 1 /hpf (0-5)
[2018-10-07] MEDS ORDERED: Insulin NovoLIN Regular Correctional Sugar Inj SQ SCH (12:00)
[2018-10-07] MEDS: Insulin NovoLOG Aspart Correctional Sugar Inj SQ SCH ×3 (12:00→21:58)
[2018-10-07] MEDS ORDERED: Famotidine PF Inj 20 MG/2 ML Vial IV.PUSH SCH (12:30)
[2018-10-07 12:46] LABS: Troponin I 7.12 ng/mL (0.02-0.05)
--- NOTE | 2018-10-07 12:53 | ECG ---
Date Performed: 10/07/2018 Time Performed: 10:01:35 PTAGE: 87 years EKG: Sinus rhythm ST DEVIATION AND MODERATE T-WAVE ABNORMALITY, CONSIDER INFERIOR ISCHEMIA ABNORMAL ECG PREVIOUS TRACING : 10/07/2018 05.02 DOCTOR: Andrew Johnson Interpretating Date/Time 10/07/2018 12:52:39
--- NOTE | 2018-10-07 17:21 | ECHRPT ---
Indication: HYPERTENSIVE HEART DISEASE CONCLUSIONS Normal left ventricular size. Wall thickness is normal. The left ventricular systolic function is low normal with an estimated ejection fraction in the rang e of 50- 55%. There is diffuse global hypokinesis with distinct regional wall motion abnormalities. Trace mitral valve regurgitation. Aortic valve sclerosis is present. There is trace tricuspid valve regurgitation. BP: / HR: Rhythm: Sinus MEASUREMENTS (Male / Female) Normal Values Technical Quality:Fair/Technically difficult study 2D ECHO LV Diastolic Diameter PLAX 4.3 cm 4.2 - 5.9 / 3.9 - 5.3 cm LV Systolic Diameter PLAX 3.6 cm IVS Diastolic Thickness 1.3 cm 0.6 - 1.0 / 0.6 - 0.9 cm LVPW Diastolic Thickness 1.3 cm 0.6 - 1.0 / 0.6 - 0.9 cm LV Relative Wall Thickness 0.6 RV Internal Dim ED PLAX 2.6 cm LVOT Diameter 1.8 cm Aortic Root Diameter 2.9 cm LA Systolic Diameter LX 4.2 cm 3.0 - 4.0 / 2.7 - 3.8 cm DOPPLER AV Peak Velocity 229.5 cm/s AV Peak Gradient 21.1 mmHg AV Mean Gradient 11.5 mmHg AV Velocity Time Integral 40.8 cm LVOT Peak Velocity 95.5 cm/s LVOT Peak Gradient 3.6 mmHg LVOT Velocity Time Integral 19.1 cm AV Area Cont Eq vti 1.2 cm AV Area Cont Eq pk 1.1 cm Mitral E Point Velocity 70.6 cm/s Mitral A Point Velocity 80.9 cm/s Mitral E to A Ratio 0.9 LV E' Septal Velocity 7.1 cm/s Mitral E to LV E' Septal Ratio 9.9 TR Peak Velocity 266.0 cm/s TR Peak Gradient 28.3 mmHg Right Atrial Pressure 10.0 mmHg Pulmonary Artery Systolic Pressu 38.3 mmHg Right Ventricular Systolic Press 38.3 mmHg PV Peak Velocity 55.3 cm/s PV Peak Gradient 1.2 mmHg FINDINGS LEFT VENTRICLE Normal left ventricular size. Wall thickness is normal. The left ventricular systolic function is low normal with an estimated ejection fraction in the rang e of 50- 55%. There is diffuse global hypokinesis with distinct regional wall motion abnormalities. RIGHT VENTRICLE Normal right ventricular size and systolic function. LEFT ATRIUM The left atrial size is normal. RIGHT ATRIUM The right atrial size is normal. ATRIAL SEPTUM Normal atrial septal thickness without atrial level shunting by limited color doppler interrogation. AORTA The aortic root and proximal ascending aorta are normal in size on limited imaging. MITRAL VALVE Trace mitral valve regurgitation. AORTIC VALVE Aortic valve sclerosis is present. TRICUSPID VALVE There is trace tricuspid valve regurgitation. PULMONARY VALVE No pulmonary valve regurgitation or stenosis. VESSELS The inferior vena cava is normal in size. PERICARDIUM No pericardial effusion. Andrew Johnson MD, FACC (Electronically Signed) Final Date:07 October 2018 17:21
[2018-10-07 17:51] LABS: Troponin I 8.55 ng/mL (0.02-0.05)
[2018-10-07] MEDS ORDERED: Senna/Docusate Sodium 8.6/50 MG Tablet PO SCH (21:00)
[2018-10-07] MEDS ORDERED: Metoprolol Tartrate 25 MG Tablet PO SCH (21:00)
[2018-10-07 21:42] LABS: Troponin I 8.07 ng/mL (0.02-0.05)
[2018-10-07] MEDS: Metoprolol Tartrate 25 MG Tablet PO SCH (21:58)
[2018-10-07] MEDS: Famotidine PF Inj 20 MG/2 ML Vial IV.PUSH SCH (21:58)
[2018-10-07 23:44] LABS: Troponin I 8.42 ng/mL (0.02-0.05)
[2018-10-08] MEDS ORDERED: Chlorhexidine Gluconate 2% 1 Pack (2 Cloths) TOPICAL ONE (04:08)
[2018-10-08] MEDS ORDERED: Sodium Chlor 0.9% Inj 500 ML IV.SIG SCH (05:00)
--- NOTE | 2018-10-08 06:41 | P.PNOP ---
Subjective Interval history: Patient is confused. Pain appears to be controlled Physical Exam Vital signs: Vital Signs 10/07/18 11:00 10/07/18 16:00 10/07/18 18:05 Temperature 99.7 F H Pulse Rate 76 105 H Respiratory Rate 15 20 18 Blood Pressure 198/81 H Pulse Oximetry 94 L 93 L 10/07/18 20:00 10/08/18 00:00 10/08/18 04:00 Temperature 99.0 F 100.0 F H 98.0 F Pulse Rate 104 H 74 75 Respiratory Rate 16 15 15 Blood Pressure 200/84 H 118/58 L 107/55 L Pulse Oximetry 93 L 90 L 94 L Intake & Output 10/07/18 10/07/18 10/08/18 06:59 18:59 06:59 Intake Total 500 / 500 Balance 500 / 500 Weight 63.503 kg 54.4 kg Intake: IV 500 / 500 NS Inj 500 ML @ Wide Open IV. 500 / 500 SIG BOLUS ONE Rx#:[id number] Other: # Voids 0 Narrative: No pain with movement of bilateral upper extremities. Intact distal pulses and is able to extend and flex both hands and fingers Left hip is flexed with no response to pain to hip knee or ankle. Intact distal pulses. Right lower extremity: Pain with movement of hip with pain response. No withdrawal or pain to palpation of foot or ankle. Intact distal pulses Results - Labs CBC & Chem 7: 10/07/18 02:50 10/07/18 17:17 Laboratory Results - last 24 hr 10/07/18 10/07/18 10/07/18 11:00 12:05 17:17 Creatinine 1.62 H Estimated GFR 30 L POC Glucose Total Creatine Kinase 184 181 Troponin I 7.12 H* D 8.55 H* D Urine Color Straw Urine Clarity Clear Urine pH 5.0 Ur Specific [place] 1.006 Urine Protein Negative Urine Glucose (UA) Negative Urine Ketones Negative Urine Occult Blood Negative Urine Nitrate Negative Urine Bilirubin Negative Urine Urobilinogen Less than 2 Ur Leukocyte Esterase Negative Urine RBC 1 Urine WBC Less than 1 Ur Squamous Epith Cells 1 Urine Bacteria Rare H Micro UA Comment Culture not ind Ur Microscopic Review Not Reportable Urine Culture Comments Culture not ind 10/07/18 10/07/18 10/07/18 17:17 17:55 20:12 Creatinine 1.75 H Estimated GFR 27 L POC Glucose 107 112 H Total Creatine Kinase Troponin I Urine Color Urine Clarity Urine pH Ur Specific [place] Urine Protein Urine Glucose (UA) Urine Ketones Urine Occult Blood Urine Nitrate Urine Bilirubin Urine Urobilinogen Ur Leukocyte Esterase Urine RBC Urine WBC Ur Squamous Epith Cells Urine Bacteria Micro UA Comment Ur Microscopic Review Urine Culture Comments 10/07/18 10/07/18 20:30 22:55 Creatinine Estimated GFR POC Glucose Total Creatine Kinase 175 154 Troponin I 8.07 H* D 8.42 H* D Urine Color Urine Clarity Urine pH Ur Specific [place] Urine Protein Urine Glucose (UA) Urine Ketones Urine Occult Blood Urine Nitrate Urine Bilirubin Urine Urobilinogen Ur Leukocyte Esterase Urine RBC Urine WBC Ur Squamous Epith Cells Urine Bacteria Micro UA Comment Ur Microscopic Review Urine Culture Comments Assessment and Plan - Assessment and Plan Right nondisplaced subcapital femur fracture Surgery is postponed today due to cardiac stent placement. If cleared surgery may proceed tomorrow.
[2018-10-08 06:48] LABS: Baso # (Auto) 0.1 th/mm3 (0.0-0.2); Baso % (Auto) 0.8 % (0.0-2.0); Eos # (Auto) 0.9 th/mm3 (0.0-0.4); Eos % (Auto) 9.1 % (0.0-4.0); Hematocrit 32.3 % (35.0-46.0); Hemoglobin 10.6 gm/dL (11.6-15.3); Lymph # (Auto) 0.9 th/mm3 (1.0-4.8); Lymph % (Auto) 8.8 % (9.0-44.0); Mean Corpuscular HGB Conc 32.7 % (32.0-36.0); Mean Corpuscular Hemoglobin 26.7 pg (27.0-34.0); Mean Corpuscular Volume 81.5 fL (80.0-100.0); Mono # (Auto) 0.4 th/mm3 (0.0-0.9); Mono % (Auto) 4.5 % (0.0-8.0); Neut # (Auto) 7.5 th/mm3 (1.8-7.7); Neut % (Auto) 76.8 % (16.0-70.0); Platelet Count 192 th/mm3 (150-450); Red Blood Count 3.96 mil/mm3 (4.00-5.30); White Blood Count 9.8 th/mm3 (4.0-11.0)
[2018-10-08 06:55] LABS: INR 1.1 Ratio; Prothrombin Time 10.8 sec (9.8-11.6)
[2018-10-08 07:43] LABS: Alanine Aminotransferase 27 U/L (10-53); Albumin 3.1 g/dL (3.4-5.0); Alkaline Phosphatase 89 U/L (45-117); Anion Gap 9 meq/L (5-15); Aspartate Aminotransferase 44 U/L (15-37); Blood Urea Nitrogen 43 mg/dL (7-18); Calcium 8.3 mg/dL (8.5-10.1); Carbon Dioxide 22.2 meq/L (21.0-32.0); Chloride 112 meq/L (98-107); Creatine Kinase 329 U/L (26-192); Free T4 (Free Thyroxine) 1.05 ng/dL (0.76-1.46); Glomerular Filtration Rate 19 mL/min (>89); Glucose,Random 97 mg/dL (74-106); Magnesium 2.7 mg/dL (1.5-2.5); Phosphorus 5.3 mg/dL (2.5-4.9); Potassium 4.5 meq/L (3.5-5.1); Sodium 143 meq/L (136-145); Total Protein 6.7 g/dL (6.4-8.2)
[2018-10-08 07:57] LABS: Troponin I 9.54 ng/mL (0.02-0.05)
[2018-10-08 08:16] LABS: CKMB Percent 2.4 % (0.0-4.0); Creatine Kinase MB 7.9 ng/mL (0.5-3.6)
[2018-10-08] MEDS: Aspirin 325 MG Tablet PO SCH ×2 (08:42→15:54)
[2018-10-08] MEDS: Famotidine PF Inj 20 MG/2 ML Vial IV.PUSH SCH ×2 (08:42→21:17)
[2018-10-08] MEDS: Metoprolol Tartrate 25 MG Tablet PO SCH (08:43)
[2018-10-08] MEDS: Morphine Sulfate Inj 2 MG/ML Vial IV.PUSH PRN (08:43)
[2018-10-08] MEDS: Insulin NovoLOG Aspart Correctional Sugar Inj SQ SCH ×4 (08:45→21:15)
[2018-10-08] MEDS: Dextrose 5% in Water Inj 1,000 ML IV.CONT SCH ×2 (08:46→21:15)
[2018-10-08] MEDS: Senna/Docusate Sodium 8.6/50 MG Tablet PO SCH ×3 (08:47→21:18)
--- NOTE | 2018-10-08 08:58 | P.PN ---
Subjective Interval history: Follow-up visit for right hip fracture, elevated troponin. Patient seen and examined this morning with nurse at bedside resting in bed, initially says ken after this does not speak further. She appears paranoid, moving all extremities, rapid labored withdrawals when approached. Nurse reports patient was alert and oriented the day before and this is different this morning. Later I speak to the who reports patient has a history of Alzheimer's dementia and will have episodes on and off of paranoia. She follows routinely with a psychiatrist and was admitted to psychiatric department in December of this year due to this. He reports that normally she is not this confused. He reports that fall happened when she caught her foot and lost her balance at home landing on her hip. Initially he believed that patient was going to be able to get up off the floor however later patient requested EVAC to be called for further evaluation in the hospital. Physical Exam Vital signs: Vital Signs 10/07/18 11:00 10/07/18 16:00 10/07/18 18:05 Temperature 99.7 F H Pulse Rate 76 105 H Respiratory Rate 15 20 18 Blood Pressure 198/81 H Pulse Oximetry 94 L 93 L 10/07/18 20:00 10/07/18 20:11 10/08/18 00:00 Temperature 99.0 F 100.0 F H Pulse Rate 104 H 96 H 72 Respiratory Rate 16 15 Blood Pressure 200/84 H 118/58 L Pulse Oximetry 93 L 90 L 10/08/18 03:57 10/08/18 04:00 Temperature 98.0 F Pulse Rate 68 75 Respiratory Rate 15 Blood Pressure 107/55 L Pulse Oximetry 94 L Intake & Output 10/07/18 10/08/18 10/08/18 18:59 06:59 18:59 Weight 54.4 kg Other: # Voids 0 Narrative: GENERAL: Well-nourished, well-developed female who appears confused. SKIN: Warm and dry. HEAD: Atraumatic. Normocephalic. EYES: Pupils equal and round. No scleral icterus. No injection or drainage. ENT: No nasal bleeding or discharge. Mucous membranes pink and moist. NECK: Trachea midline. CARDIOVASCULAR: Regular rate and rhythm. RESPIRATORY: No accessory muscle use. Clear to auscultation. Breath sounds equal bilaterally. GASTROINTESTINAL: Abdomen soft, non-tender, nondistended. + Bowel sounds MUSCULOSKELETAL: Extremities without clubbing, cyanosis, or edema. No obvious deformities. NEUROLOGICAL: Awake, alert, oriented x0 No obvious cranial nerve deficits. Motor grossly within normal limits, moving all extremities spontaneously, not following commands. Few spoken words clear. PSYCHIATRIC: Inappropriate affect; poor insight and judgment normal. Appears paranoid. Results - Labs CBC & Chem 7: 10/08/18 17:09 10/08/18 05:51 Laboratory Results - last 24 hr 10/07/18 10/07/18 10/07/18 11:00 12:05 17:17 WBC RBC Hgb Hct MCV MCH MCHC RDW Plt Count MPV Neut % (Auto) Lymph % (Auto) [place] % (Auto) Eos % (Auto) Baso % (Auto) Neut # (Auto) Lymph # (Auto) [place] # (Auto) Eos # (Auto) Baso # (Auto) WBC Differential Differential Comment PT INR Sodium Potassium Chloride Carbon Dioxide Anion Gap BUN Creatinine 1.62 H Estimated GFR 30 L POC Glucose Random Glucose Calcium Phosphorus Magnesium Total Bilirubin AST ALT Alkaline Phosphatase Total Creatine Kinase 184 181 CK-MB (CK-2) CK-MB (CK-2) % Troponin I 7.12 H* D 8.55 H* D Total Protein Albumin TSH Free T4 Urine Color Straw Urine Clarity Clear Urine pH 5.0 Ur Specific [place] 1.006 Urine Protein Negative Urine Glucose (UA) Negative Urine Ketones Negative Urine Occult Blood Negative Urine Nitrate Negative Urine Bilirubin Negative Urine Urobilinogen Less than 2 Ur Leukocyte Esterase Negative Urine RBC 1 Urine WBC Less than 1 Ur Squamous Epith Cells 1 Urine Bacteria Rare H Micro UA Comment Culture not ind Ur Microscopic Review Not Reportable Urine Culture Comments Culture not ind 10/07/18 10/07/18 10/07/18 17:17 17:55 20:12 WBC RBC Hgb Hct MCV MCH MCHC RDW Plt Count MPV Neut % (Auto) Lymph % (Auto) [place] % (Auto) Eos % (Auto) Baso % (Auto) Neut # (Auto) Lymph # (Auto) [place] # (Auto) Eos # (Auto) Baso # (Auto) WBC Differential Differential Comment PT INR Sodium Potassium Chloride Carbon Dioxide Anion Gap BUN Creatinine 1.75 H Estimated GFR 27 L POC Glucose 107 112 H Random Glucose Calcium Phosphorus Magnesium Total Bilirubin AST ALT Alkaline Phosphatase Total Creatine Kinase CK-MB (CK-2) CK-MB (CK-2) % Troponin I Total Protein Albumin TSH Free T4 Urine Color Urine Clarity Urine pH Ur Specific [place] Urine Protein Urine Glucose (UA) Urine Ketones Urine Occult Blood Urine Nitrate Urine Bilirubin Urine Urobilinogen Ur Leukocyte Esterase Urine RBC Urine WBC Ur Squamous Epith Cells Urine Bacteria Micro UA Comment Ur Microscopic Review Urine Culture Comments 10/07/18 10/07/18 10/08/18 20:30 22:55 05:51 WBC 9.8 RBC 3.96 L Hgb 10.6 L Hct 32.3 L MCV 81.5 D MCH 26.7 L MCHC 32.7 RDW 16.0 Plt Count 192 MPV 9.0 Neut % (Auto) 76.8 H Lymph % (Auto) 8.8 L [place] % (Auto) 4.5 Eos % (Auto) 9.1 H Baso % (Auto) 0.8 Neut # (Auto) 7.5 Lymph # (Auto) 0.9 L [place] # (Auto) 0.4 Eos # (Auto) 0.9 H Baso # (Auto) 0.1 WBC Differential . Differential Comment Auto diff final PT INR Sodium Potassium Chloride Carbon Dioxide Anion Gap BUN Creatinine Estimated GFR POC Glucose Random Glucose Calcium Phosphorus Magnesium Total Bilirubin AST ALT Alkaline Phosphatase Total Creatine Kinase 175 154 CK-MB (CK-2) CK-MB (CK-2) % Troponin I 8.07 H* D 8.42 H* D Total Protein Albumin TSH Free T4 Urine Color Urine Clarity Urine pH Ur Specific [place] Urine Protein Urine Glucose (UA) Urine Ketones Urine Occult Blood Urine Nitrate Urine Bilirubin Urine Urobilinogen Ur Leukocyte Esterase Urine RBC Urine WBC Ur Squamous Epith Cells Urine Bacteria Micro UA Comment Ur Microscopic Review Urine Culture Comments 10/08/18 10/08/18 10/08/18 05:51 05:51 07:01 WBC RBC Hgb Hct MCV MCH MCHC RDW Plt Count MPV Neut % (Auto) Lymph % (Auto) [place] % (Auto) Eos % (Auto) Baso % (Auto) Neut # (Auto) Lymph # (Auto) [place] # (Auto) Eos # (Auto) Baso # (Auto) WBC Differential Differential Comment PT 10.8 INR 1.1 Sodium 143 Potassium 4.5 Chloride 112 H Carbon Dioxide 22.2 Anion Gap 9 BUN 43 H Creatinine 2.38 H Estimated GFR 19 L POC Glucose 98 Random Glucose 97 Calcium 8.3 L Phosphorus 5.3 H Magnesium 2.7 H Total Bilirubin 0.5 AST 44 H ALT 27 Alkaline Phosphatase 89 Total Creatine Kinase 329 H CK-MB (CK-2) 7.9 H CK-MB (CK-2) % 2.4 Troponin I 9.54 H* D Total Protein 6.7 Albumin 3.1 L TSH 2.990 Free T4 1.05 Urine Color Urine Clarity Urine pH Ur Specific [place] Urine Protein Urine Glucose (UA) Urine Ketones Urine Occult Blood Urine Nitrate Urine Bilirubin Urine Urobilinogen Ur Leukocyte Esterase Urine RBC Urine WBC Ur Squamous Epith Cells Urine Bacteria Micro UA Comment Ur Microscopic Review Urine Culture Comments Assessment and Plan - Assessment (1) Chronic pain Code(s): G89.29 - Other chronic pain Status: Chronic (2) Fall Code(s): W19.XXXA - Unspecified fall, initial encounter Status: Acute (3) Femoral neck fracture Code(s): S72.009A - Fracture of unspecified part of neck of unspecified femur, initial encounter for closed fracture Status: Acute (4) Diabetes Code(s): E11.9 - Type 2 diabetes mellitus without complications Status: Chronic (5) Hypertension Code(s): I10 - Essential (primary) hypertension Status: Chronic - Plan Attending note This patient is a 87-year-old female with a diagnosis of diabetes, hypertension, chronic kidney disease stage IV, Alzheimer's dementia. The patient presented after suffering a ground-level fall at home and suffering a right hip fracture. The patient was also more altered from her baseline as per the patient's . In the emergency department EKG showed normal sinus rhythm, ST segment depressions in the anterior and lateral leads. Troponins were elevated and peaked around 9. Patient was subsequently admitted for the right hip fracture and non-ST segment elevation CT. I had a discussion with high voltage electrician Dr. Johnson and discussed the patient with him in detail regarding her chronic kidney disease, hip fracture, and non-ST segment elevation CT. We decided it would be beneficial at this point to treat the patient medically rather than undergoing cardiac catheterization given the patient's chronic kidney disease stage. The plan was also discussed with the patient's who is at bedside who agreed with the plan. As per cardiology the patient will be started on aspirin, statin, beta-ebony, Plavix. No heparin drip as per cardiology. I discussed the case with Dr. Amezquita from orthopedics who operated on the patient today. He reported very minimal blood loss during the procedure and he was okay with starting Plavix now. Plavix and aspirin will be started tonight. Patient also has acute encephalopathy, ammonia level was normal, CT scan of the head did not show any significant abnormalities that could give a specific reason of why the patient was altered. Her acute encephalopathy could possibly be due to the acute CT. We will continue to follow the patient closely. 87-year-old female with past medical history significant for diabetes , hypertension, hyperuricemia, chronic kidney disease, Alzheimer's dementia who presented to the emergency department after sustaining a fall. Imaging revealed fracture of left femoral neck. Orthopedic services consulted. Further testing revealed elevated and troponins trending up. Fall (imaging reports as seen above) Nondisplaced subcapital femoral fracture -Orthopedic services consulted. s/p surgical intervention today - PT following -Pain control with Percocet and morphine -Repeat H&H following surgery 10.5/32.3 NSTEMI -Cardiology services consulted, greatly appreciate assistance. -Latest EKG with ST deviation and moderate T wave abnormality, possible anterior lateral ischemia ST deviation and moderate T wave abnormality to consider inferior ischemia. -Echo with normal LV function -Cardiology has discussed with orthopedic services and patient has been cleared for surgery today -Per cardiology treat medically -Continue aspirin, beta-ebony, statin, nitro -? If Plavix can be added in the future -Patient with no chest pain complaints Acute on chronic kidney disease Review of EMR, baseline creatinine around 1.9-2.5 -Creatinine at admission 1.61 increased to 2.38 -IV hydration, avoid nephrotoxins -Continue monitoring renal function closely if needed consult nephrology Diabetes mellitus -Pending hemoglobin A1c -Diabetic, heart healthy and renal diet -Accu-Cheks with insulin sliding scale. Altered mental status Embolic encephalopathy -Likely multifactorial due to Alzheimer's dementia and narcotics -Stat head CT negative, ABG stable, ammonia within normal limits, UA negative -Neurochecks every 4 hours Alzheimer's dementia -? If this is been exacerbated -Consult psychiatry, greatly appreciate assistance DVT prophylaxisper orthopedic surgeon Discussed Condition With: Patient, , , and nursing staff. (2) Fall Qualifiers: Encounter type: initial encounter Qualified Code(s): W19.XXXA - Unspecified fall, initial encounter (3) Femoral neck fracture Qualifiers: Encounter type: initial encounter Fracture type: closed Laterality: right Qualified Code(s): S72.001A - Fracture of unspecified part of neck of right femur, initial encounter for closed fracture
--- NOTE | 2018-10-08 09:30 | MB ---
cc: Andrew Johnson MD DATE: 10/08/2018 INDICATION: Non-ST elevation myocardial infarction. HISTORY OF PRESENT ILLNESS: This is an 87-year-old female. She presented after a fall and had right hip pain. She was found to have a right femoral neck fracture and was admitted for pain control and orthopedic consultation. During her presentation, she did develop some tightening sensation in her chest with some shortness of breath. She is currently not alert and oriented. She is quite confused and lethargic. Unable to get any adequate history from her at this time. We are consulted for further recommendations given elevation in troponin. According to the documentation, I do not see any prior history of known coronary disease. PAST MEDICAL HISTORY: Diabetes, hypertension, chronic kidney disease. PAST SURGICAL HISTORY: Thyroidectomy, hernia repair, cholecystectomy. SOCIAL HISTORY: Denies any alcohol, tobacco or drug use in the records. FAMILY HISTORY: Noncontributory. REVIEW OF SYSTEMS: Unable to obtain. PHYSICAL EXAMINATION: VITAL SIGNS: Temperature is 100.0 degrees Fahrenheit, pulse is 74, blood pressure is 118/58 mmHg. GENERAL: She is not oriented. She is slightly lethargic, but not complaining of any pain. HEENT: Pupils reactive to light and accommodation. Extraocular movements intact. NECK: Elevation in jugular venous distention. No thyromegaly or lymphadenopathy. No carotid bruits. LUNGS: Clear to auscultation bilaterally. CARDIOVASCULAR: Regular rate and rhythm without murmurs, rubs or gallops. ABDOMEN: Nontender, nondistended with good bowel sounds. No hepatosplenomegaly. EXTREMITIES: No clubbing, cyanosis or edema. Good peripheral pulses. NEUROLOGIC: Cranial nerves intact. Motor and sensory grossly intact. LABORATORY DATA: WBC is 9.8, hemoglobin is 10.6, platelet count is 192. INR is 1.1. Sodium 143, potassium 4.5, BUN is 43, creatinine is 2.38 and troponin is as high as 9.54. ASSESSMENT: 1. Non-ST elevation myocardial infarction. 2. Right hip fracture. 3. Confusion. 4. [id number] renal insufficiency. PLAN: The patient does not have a known history of heart disease, although troponin now is up to 9.54. She is not complaining of any active symptoms. She does have worsening renal function. This may be contributing to the further elevation of her troponin. Good news is that her echocardiogram shows no significant regional wall motion abnormalities. There is normal LV systolic function. Given the current circumstances, a cardiac catheterization would put her at further risk for worsening renal function and probable dialysis. In the setting of normal left ventricular systolic function without any further chest pain, we may elect just to proceed forward with orthopedic surgery. She is also not going to be cooperative with a heart catheterization at this time. She was also febrile and that probably needs to be evaluated prior to any surgical or invasive procedures. From a cardiovascular perspective, she would be clear but at increased risk for any surgical procedure. If we did do a cardiac catheterization and needed some sort of percutaneous intervention, antiplatelet therapy would create an issue for needed orthopedic surgery. Her outcome is not going to be good if she does not have that hip repaired. So from a cardiac perspective, we will clear her for surgery. If we need to address any cardiac-related issues after surgery, we can do so. MD STEPHANIA Morrissey/nishant , 08:32 AM , 08:40 AM
[2018-10-08 10:23] LABS: ABG Base Excess -3.6 mmol/L (-2-2); ABG PCO2 38 mmHg (38-42); ABG PO2 70 mmHg (61-120)
[2018-10-08] MEDS ORDERED: ceFAZolin 1 GM Premix Inj 1 GM/50 ML FROZ.PIGGY IV.SIG ONE (10:34)
[2018-10-08] MEDS ORDERED: Morphine Sulfate Inj 2 MG/ML Vial IV.PUSH PRN (10:50)
--- NOTE | 2018-10-08 11:24 | CT ---
EXAM DATE: 10/08/2018 10:57 AM EST AGE/SEX: 87 years / Female INDICATIONS: Altered mental status. CLINICAL DATA: This is the patient's initial encounter. Patient reports that signs and symptoms have been present for 1 day and indicates a pain score of 0/10. MEDICAL/SURGICAL HISTORY: Diabetes. Hypertension. Cholecystectomy. hernia repair RADIATION DOSE: 34.94 CTDI (mGy) [place] [facility] [place]. . TECHNIQUE: CT of the head without contrast. Using automated exposure control and adjustment of the mA and/or kV according to patient size, radiation dose was kept as low as reasonably achievable to ob tain optimal diagnostic quality images. DICOM format image data is available electronically for revi ew and comparison. FINDINGS: Right occipital encephalomalacia is unchanged. Mild patchy periventricular white matter hypodensity i s unchanged. No evidence of mass or hemorrhage. Nothing to suggest acute infarction. Extracranial str uctures are benign. CONCLUSION: Stable brain with no acute findings . Electronically signed by: Luis Jansen MD 10/08/2018 11:22 AM EST
--- NOTE | 2018-10-08 12:11 | ECG ---
Date Performed: 10/07/2018 Time Performed: 19:19:18 PTAGE: 87 years EKG: Sinus rhythm ST DEVIATION AND MODERATE T-WAVE ABNORMALITY, CONSIDER ANTEROLATERAL ISCHEMIA ST DEVIATION AND MODER ATE T-WAVE ABNORMALITY, CONSIDER INFERIOR ISCHEMIA ABNORMAL ECG Since the PREVIOUS TRACING , no significant change noted PREVIOUS TRACIN10/07/2018 10.01 DOCTOR: Darryn Goldsmith Interpretating Date/Time 10/08/2018 12:09:22
[2018-10-08] MEDS ORDERED: Bupivacaine PF 0.5% Inj 10 ML Vial ONE (13:36)
[2018-10-08] MEDS ORDERED: Bupivacaine/Epinephrine Inj 0.25% 50 ML Vial ONE (14:39)
--- NOTE | 2018-10-08 14:56 | XR ---
EXAM DATE: 10/08/2018 2:53 PM EST AGE/SEX: 87 years / Female INDICATIONS: Right hip pinning. CLINICAL DATA: This is the patient's initial encounter. Patient reports that signs and symptoms have been present for 1 day and indicates a pain score of Nonresponsive. MEDICAL/SURGICAL HISTORY: None. None. COMPARISON: No prior exams available for comparison. FINDINGS: The examination demonstrates interval placement of 2 nails within the patient's right hip. There is e xcellent alignment of the fracture. CONCLUSION: Excellent alignment of the fracture post fixation. Electronically signed by: Adrián Teixeira MD 10/08/2018 2:55 PM EST
[2018-10-08] MEDS ORDERED: *Labetalol HCl Inj 100 MG/20 ML Vial PERIprocedural Use ONLY IV.PUSH ONE (15:18)
[2018-10-08] MEDS ORDERED: fentaNYL Citrate Inj 100 MCG/2 ML Ampul ONE (15:19)
[2018-10-08 17:47] LABS: Hematocrit 32.3 % (35.0-46.0); Hemoglobin 10.5 gm/dL (11.6-15.3)
[2018-10-08 17:48] LABS: Hemoglobin A1c 5.7 % (4.3-6.0)
[2018-10-08] MEDS: Metoprolol Tartrate 50 MG Tablet PO SCH (21:17)
--- NOTE | 2018-10-08 21:59 | P.CONOP ---
[facility] Orthopedics Consult Note - [facility] Consult date: 10/08/18 Consult reason: fracture Chief complaint: Fall, Femoral Neck Fracture, Chest Pain r/o ACS Narrative: The patient is a 87-year-old female with dementia who has been living with her in their home with overall slowly and worsening case of dementia. She sustained a fall and complained of pain in her right hip. She was brought to [facility]. X-rays were nondiagnostic but suggested a hip fracture. CT scan gave more evidence that a hip fracture existed with nondisplaced femoral neck fracture. Clinically and radiographically this is most consistent with a nondisplaced femoral neck fracture. A Garden class I fracture pattern. The patient was also worked up and found to be positive for a acute myocardial infarction. Medical and cardiology are working on this and the current plan is nonoperative management. She has been cleared for surgical intervention for her hip. [facility] - History History Provided By: Significant Other - Medical History Medical History: Medical History (Last Reviewed 10/08/18 @ 21:53 by Dillon Pena MD) Diabetes (Acute) Hypertension (Acute) Chronic kidney disease (Acute) Hyperuricemia (Acute) - Surgical History Surgical History: Surgical History (Last Reviewed 10/08/18 @ 21:53 by Dillon Pena MD) H/O partial thyroidectomy (Acute) History of repair of hiatal hernia (Acute) History of cholecystectomy (Acute) - Family History Family History: Family History (Last Reviewed 10/08/18 @ 21:53 by Dillon Pena MD) Other Family history of hypertension - Tobacco History Second Hand Smoke Exposure: No Tobacco Use In Past 30 Days: No Smoking Status: Never smoker - Alcohol History How Often Do You Have a Drink Containing Alcohol: Never - Substance Use History Substance History: No History of Abuse - Travel History History of Recent Travel: No Recent Travel in the [place] Within the Last 8 Weeks: No Recent Travel Out of the Country Within the Last 8 Weeks: No - Immunization History Tetanus Immunization: >5 Years Hx Influenza Vaccine This Season: No Medications and Allergies Active Medications: Active Medications Acetaminophen (Tylenol) 650 mg PO Q4H PRN PRN Reason: Temp > 100.4 Last Admin: 10/07/18 22:17 Dose: 650 mg Al Hydroxide/Mg Hydroxide (Milk Of Magnesia Liq) 30 ml PO Q12H PRN PRN Reason: Mild Constipation Aspirin (Aspirin Chew) 81 mg PO DAILY [facility] Bisacodyl (Dulcolax Supp) 10 mg RECTAL DAILY PRN PRN Reason: SEVERE CONSITIPATION Clonidine HCl (Catapres) 0.1 mg PO Q6H PRN PRN Reason: HYPERTENSION Last Admin: 10/08/18 16:52 Dose: 0.1 mg Clopidogrel Bisulfate (Plavix) 75 mg PO DAILY [facility] Dextrose (D50w Vial) 50 ml IV.PUSH UNSCH PRN PRN Reason: PER HYPOGLYCEMIA PROTOCOL Enoxaparin Sodium (Lovenox Inj) 40 mg SQ DAILY [facility] Famotidine (Pepcid Pf Inj) 10 mg IV.PUSH Q12HR [facility] Last Admin: 10/08/18 21:17 Dose: 10 mg Glucagon (Glucagon Inj) 1 mg OTHER PRN PRN PRN Reason: for Hypoglycemia Protocol Lactated Ringer's (Lr 1000 Ml Inj) 1,000 mls @ 30 mls/hr IV.SIG .Q24H [facility] Stop: 10/09/18 04:14 Last Admin: 10/08/18 12:22 Dose: 30 mls/hr Sodium Chloride (Ns Inj) 500 mls @ 30 mls/hr IV.SIG .Q10H [facility] Dextrose (D5w Inj) 1,000 mls @ 84 mls/hr IV.CONT .[id number] [facility] Last Admin: 10/08/18 21:15 Dose: Not Given Insulin Aspart (Novolog Insulin Correctional Sugar Inj) 0 unit SQ ACHS [facility]; Protocol Last Admin: 10/08/18 16:46 Dose: Not Given Lactulose (Lactulose Liq) 30 ml PO DAILY PRN PRN Reason: SEVERE CONSITIPATION Metoprolol Tartrate (Lopressor) 50 mg PO BID [facility] Last Admin: 10/08/18 21:17 Dose: 50 mg Miscellaneous Information (Misc Nursing Information) 0 each OTHER UNSCH PRN PRN Reason: SEE LABEL COMMENTS Stop: 10/09/18 16:00 Morphine Sulfate (Morphine Inj) 2 mg IV.PUSH Q4H PRN PRN Reason: Pain 3-10;unable to take p.o. Naloxone HCl (Narcan Inj) 0.4 mg IV.PUSH UNSCH PRN PRN Reason: SEE LABEL COMMENTS Nitroglycerin (Nitro-Bid 2% Oint) 1 inch TOPICAL Q6HR [facility] Last Admin: 10/08/18 17:01 Dose: 1 inch Ondansetron HCl (Zofran Inj) 4 mg IV.PUSH Q6H PRN PRN Reason: NAUSEA OR VOMITING Oxycodone/Acetaminophen (Percocet 5/325 Mg) 1 tab PO Q6H PRN PRN Reason: Pain Scale 3 To 10 Pravastatin Sodium (Pravachol) 40 mg PO HS [facility] Last Admin: 10/08/18 21:17 Dose: 40 mg Senna/Docusate Sodium (Tracey-Colace) 1 tab PO BID [facility] Last Admin: 10/08/18 21:18 Dose: 1 tab Sennosides (Senokot) 17.2 mg PO Q12H PRN PRN Reason: Moderate Constipation Sodium Chloride (Ns Flush) 2 ml IV.FLUSH UNSCH PRN PRN Reason: FLUSH AFTER USING IV ACCESS Allergies Allergy/AdvReac Type Severity Reaction Status Date / Time codeine Allergy Severe Unverified 12/29/17 22:10 estradiol Allergy Severe Unverified 12/29/17 22:10 estrogens, conjugated Allergy Severe Unverified 12/29/17 22:10 fexofenadine Allergy Severe Unverified 12/29/17 22:10 prednisone AdvReac Severe Verified 12/29/17 22:10 Home Medications Medication Instructions Recorded Confirmed Type No Known Home Medications 10/07/18 10/07/18 History Exam Vital signs: Vital Signs 10/08/18 00:00 10/08/18 03:57 10/08/18 04:00 Temperature 100.0 F H 98.0 F Pulse Rate 72 68 75 Respiratory Rate 15 15 Blood Pressure 118/58 L 107/55 L Pulse Oximetry 90 L 94 L 10/08/18 08:00 10/08/18 12:00 10/08/18 15:09 Temperature 97.4 F L 97.2 F L 98.0 F Pulse Rate 77 68 83 Respiratory Rate 17 16 15 Blood Pressure 170/72 H 151/67 H 184/79 H Pulse Oximetry 97 92 L 95 10/08/18 15:15 10/08/18 15:30 10/08/18 15:45 Temperature Pulse Rate 85 84 79 Respiratory Rate 20 20 20 Blood Pressure 138/99 H 164/103 H 160/74 H Pulse Oximetry 95 95 93 L 10/08/18 16:00 10/08/18 20:00 Temperature 98.2 F 97.4 F L Pulse Rate 76 71 Respiratory Rate 18 17 Blood Pressure 176/75 H 139/61 Pulse Oximetry 96 97 Intake & Output 10/08/18 10/08/18 10/09/18 06:59 18:59 06:59 Intake Total 450 / 450 Output Total Balance 440 / 440 Weight 54.4 kg Intake: Anesthesia Amount 450 / 450 Output: Estimated Blood Loss Other: # Voids 0 # Incontinent Voids 3 # Bowel Movements 0 - Constitutional agitated - Routine HEENT Exam Head: Present: normocephalic, atraumatic Eye: Present: EOMI ENT: Present: mucous membranes moist - Additional findings Additional findings: The patient is flexing her right hip and crossing over towards her left and trying to protect the right hip. Any palpation about the right hip causes marked tenderness. She is able to move her ankles. I do not identify any tender regions in her left lower extremity or the right lower extremity below the level of the knee. I do not see any skin breakdown or swollen areas. Distal pulses are intact. Neurologic examination is intact. Results - Labs Result Diagrams: 10/08/18 17:09 10/08/18 05:51 Labs: Laboratory Results - last 24 hr 10/07/18 10/08/18 10/08/18 22:55 05:51 05:51 WBC 9.8 RBC 3.96 L Hgb 10.6 L Hct 32.3 L MCV 81.5 D MCH 26.7 L MCHC 32.7 RDW 16.0 Plt Count 192 MPV 9.0 Neut % (Auto) 76.8 H Lymph % (Auto) 8.8 L [place] % (Auto) 4.5 Eos % (Auto) 9.1 H Baso % (Auto) 0.8 Neut # (Auto) 7.5 Lymph # (Auto) 0.9 L [place] # (Auto) 0.4 Eos # (Auto) 0.9 H Baso # (Auto) 0.1 WBC Differential . Differential Comment Auto diff final PT INR Puncture Site Patient Temperature O2 Saturation ABG pH ABG pCO2 ABG pO2 ABG HCO3 ABG O2 Content ABG Base Excess ABG Methemoglobin Ritchie Test Hemoglobin Carboxyhemoglobin Inspired O2 Critical Value Sodium 143 Potassium 4.5 Chloride 112 H Carbon Dioxide 22.2 Anion Gap 9 BUN 43 H Creatinine 2.38 H Estimated GFR 19 L POC Glucose Random Glucose 97 Hemoglobin A1c Calcium 8.3 L Phosphorus 5.3 H Magnesium 2.7 H Total Bilirubin 0.5 AST 44 H ALT 27 Alkaline Phosphatase 89 Ammonia Total Creatine Kinase 154 329 H CK-MB (CK-2) 7.9 H CK-MB (CK-2) % 2.4 Troponin I 8.42 H* D 9.54 H* D Total Protein 6.7 Albumin 3.1 L TSH 2.990 Free T4 1.05 10/08/18 10/08/18 10/08/18 05:51 05:51 07:01 WBC RBC Hgb Hct MCV MCH MCHC RDW Plt Count MPV Neut % (Auto) Lymph % (Auto) [place] % (Auto) Eos % (Auto) Baso % (Auto) Neut # (Auto) Lymph # (Auto) [place] # (Auto) Eos # (Auto) Baso # (Auto) WBC Differential Differential Comment PT 10.8 INR 1.1 Puncture Site Patient Temperature O2 Saturation ABG pH ABG pCO2 ABG pO2 ABG HCO3 ABG O2 Content ABG Base Excess ABG Methemoglobin Ritchie Test Hemoglobin Carboxyhemoglobin Inspired O2 Critical Value Sodium Potassium Chloride Carbon Dioxide Anion Gap BUN Creatinine Estimated GFR POC Glucose 98 Random Glucose Hemoglobin A1c 5.7 Calcium Phosphorus Magnesium Total Bilirubin AST ALT Alkaline Phosphatase Ammonia Total Creatine Kinase CK-MB (CK-2) CK-MB (CK-2) % Troponin I Total Protein Albumin TSH Free T4 10/08/18 10/08/18 10/08/18 10:00 10:19 11:29 WBC RBC Hgb Hct MCV MCH MCHC RDW Plt Count MPV Neut % (Auto) Lymph % (Auto) [place] % (Auto) Eos % (Auto) Baso % (Auto) Neut # (Auto) Lymph # (Auto) [place] # (Auto) Eos # (Auto) Baso # (Auto) WBC Differential Differential Comment PT INR Puncture Site Right radial Patient Temperature 98.6 O2 Saturation 91 ABG pH 7.36 L ABG pCO2 38 ABG pO2 70 ABG HCO3 21 L ABG O2 Content 13.5 ABG Base Excess -3.6 L ABG Methemoglobin 1.1 Ritchie Test Present Hemoglobin 10.5 L Carboxyhemoglobin 1.8 Inspired O2 21 Critical Value No Sodium Potassium Chloride Carbon Dioxide Anion Gap BUN Creatinine Estimated GFR POC Glucose 106 Random Glucose Hemoglobin A1c Calcium Phosphorus Magnesium Total Bilirubin AST ALT Alkaline Phosphatase Ammonia 15 Total Creatine Kinase CK-MB (CK-2) CK-MB (CK-2) % Troponin I Total Protein Albumin TSH Free T4 10/08/18 10/08/18 10/08/18 16:20 17:09 21:14 WBC RBC Hgb 10.5 L Hct 32.3 L MCV MCH MCHC RDW Plt Count MPV Neut % (Auto) Lymph % (Auto) [place] % (Auto) Eos % (Auto) Baso % (Auto) Neut # (Auto) Lymph # (Auto) [place] # (Auto) Eos # (Auto) Baso # (Auto) WBC Differential Differential Comment PT INR Puncture Site Patient Temperature O2 Saturation ABG pH ABG pCO2 ABG pO2 ABG HCO3 ABG O2 Content ABG Base Excess ABG Methemoglobin Ritchie Test Hemoglobin Carboxyhemoglobin Inspired O2 Critical Value Sodium Potassium Chloride Carbon Dioxide Anion Gap BUN Creatinine Estimated GFR POC Glucose 133 H 161 H Random Glucose Hemoglobin A1c Calcium Phosphorus Magnesium Total Bilirubin AST ALT Alkaline Phosphatase Ammonia Total Creatine Kinase CK-MB (CK-2) CK-MB (CK-2) % Troponin I Total Protein Albumin TSH Free T4 - Diagnostic results Imaging: Impressions Head CT 10/08/18 00:00 CONCLUSION: Stable brain with no acute findings . Hip X-Ray 10/08/18 00:00 CONCLUSION: Excellent alignment of the fracture post fixation. Assessment and Plan - Assessment and Plan The patient's condition of nondisplaced right femoral neck fracture was discussed with the patient's and the options of treatment were discussed. The recommendation is to proceed with screw stabilization to decrease the chance of the fracture displacing. The risk and benefits and alternatives to treatment were discussed. He asked appropriate questions. A detailed informed consent was obtained.
--- NOTE | 2018-10-08 22:03 | P.OP ---
- Preoperative Diagnosis (1) Nondisplaced fracture of neck of right femur - Postoperative Diagnosis (1) Nondisplaced fracture of neck of right femur Date of procedure: 10/08/18 Procedure: Right hip percutaneous pinning of femoral neck fracture using Synthes 7.3 cannulated screws Anesthesia: spinal Surgeon: Dillon Pena MD Estimated blood loss (mL): 10 Operation and Findings: Patient brought the operating room. She was placed under spinal anesthetic. She is placed on well-padded fracture table. She was given IV antibiotics. Right hip was prepped and draped in usual sterile fashion. Timeout was completed. We proceeded with the use of fluoroscopy to determine the planned angle of screw placement. Small incision was made on the lateral thigh. A guidepin was drilled through the lateral femur and across the lateral cortex and into the neck and across the neck and the fracture site and into the head in good position both the AP and lateral planes. Second incision and second guidepin were placed. Alignment confirmed with AP and lateral planes. We proceeded to drill in countersink and place her screws. Excellent fixation. Irrigated out. Closed with absorbable suture. Steri-Strips applied. Sterile dressing applied. Patient was awoken and returned to recovery room in stable condition.
[2018-10-09] MEDS: Dextrose 5% in Water Inj 1,000 ML IV.CONT SCH (05:30)
[2018-10-09 06:33] LABS: Calcium 7.8 mg/dL (8.5-10.1); Carbon Dioxide 23.6 meq/L (21.0-32.0); Potassium 4.4 meq/L (3.5-5.1)
[2018-10-09] MEDS: Insulin NovoLOG Aspart Correctional Sugar Inj SQ SCH (08:06)
--- NOTE | 2018-10-09 08:10 | P.PNCA ---
Subjective Interval history: Patient is confused. RN at bedside, no events reported. Had hip surgery yesterday. The patient denies any chest pain or shortness of breath. Medications and Allergies Active Medications: Active Medications Acetaminophen (Tylenol) 650 mg PO Q4H PRN PRN Reason: Temp > 100.4 Last Admin: 10/07/18 22:17 Dose: 650 mg Al Hydroxide/Mg Hydroxide (Milk Of Magnesia Liq) 30 ml PO Q12H PRN PRN Reason: Mild Constipation Aspirin (Aspirin Chew) 81 mg PO DAILY [facility] Bisacodyl (Dulcolax Supp) 10 mg RECTAL DAILY PRN PRN Reason: SEVERE CONSITIPATION Clonidine HCl (Catapres) 0.1 mg PO Q6H PRN PRN Reason: HYPERTENSION Last Admin: 10/08/18 16:52 Dose: 0.1 mg Clopidogrel Bisulfate (Plavix) 75 mg PO DAILY [facility] Dextrose (D50w Vial) 50 ml IV.PUSH UNSCH PRN PRN Reason: PER HYPOGLYCEMIA PROTOCOL Enoxaparin Sodium (Lovenox Inj) 40 mg SQ DAILY [facility] Famotidine (Pepcid Pf Inj) 10 mg IV.PUSH Q12HR [facility] Last Admin: 10/08/18 21:17 Dose: 10 mg Glucagon (Glucagon Inj) 1 mg OTHER PRN PRN PRN Reason: for Hypoglycemia Protocol Sodium Chloride (Ns Inj) 500 mls @ 30 mls/hr IV.SIG .Q10H [facility] Dextrose (D5w Inj) 1,000 mls @ 84 mls/hr IV.CONT .[id number] [facility] Last Admin: 10/09/18 05:30 Dose: 84 mls/hr Insulin Aspart (Novolog Insulin Correctional Sugar Inj) 0 unit SQ ACHS [facility]; Protocol Last Admin: 10/08/18 21:15 Dose: 1 unit Lactulose (Lactulose Liq) 30 ml PO DAILY PRN PRN Reason: SEVERE CONSITIPATION Metoprolol Tartrate (Lopressor) 50 mg PO BID [facility] Last Admin: 10/08/18 21:17 Dose: 50 mg Miscellaneous Information (Mis Nursing Information) 0 each OTHER UNSCH PRN PRN Reason: SEE LABEL COMMENTS Stop: 10/09/18 16:00 Morphine Sulfate (Morphine Inj) 2 mg IV.PUSH Q4H PRN PRN Reason: Pain 3-10;unable to take p.o. Last Admin: 10/09/18 06:12 Dose: 2 mg Naloxone HCl (Narcan Inj) 0.4 mg IV.PUSH UNSCH PRN PRN Reason: SEE LABEL COMMENTS Nitroglycerin (Nitro-Bid 2% Oint) 1 inch TOPICAL Q6HR [facility] Last Admin: 10/09/18 06:08 Dose: 1 inch Ondansetron HCl (Zofran Inj) 4 mg IV.PUSH Q6H PRN PRN Reason: NAUSEA OR VOMITING Oxycodone/Acetaminophen (Percocet 5/325 Mg) 1 tab PO Q6H PRN PRN Reason: Pain Scale 3 To 10 Pravastatin Sodium (Pravachol) 40 mg PO HS [facility] Last Admin: 10/08/18 21:17 Dose: 40 mg Senna/Docusate Sodium (Tracey-Colace) 1 tab PO BID [facility] Last Admin: 10/08/18 21:18 Dose: 1 tab Sennosides (Senokot) 17.2 mg PO Q12H PRN PRN Reason: Moderate Constipation Sodium Chloride (Ns Flush) 2 ml IV.FLUSH UNSCH PRN PRN Reason: FLUSH AFTER USING IV ACCESS Allergies Allergy/AdvReac Type Severity Reaction Status Date / Time codeine Allergy Severe Unverified 12/29/17 22:10 estradiol Allergy Severe Unverified 12/29/17 22:10 estrogens, conjugated Allergy Severe Unverified 12/29/17 22:10 fexofenadine Allergy Severe Unverified 12/29/17 22:10 prednisone AdvReac Severe Verified 12/29/17 22:10 Home Medications Medication Instructions Recorded Confirmed Type No Known Home Medications 10/07/18 10/07/18 History Physical Exam Vital signs: Vital Signs 10/08/18 12:00 10/08/18 15:09 10/08/18 15:15 Temperature 97.2 F L 98.0 F Pulse Rate 68 83 85 Respiratory Rate 16 15 20 Blood Pressure 151/67 H 184/79 H 138/99 H Pulse Oximetry 92 L 95 95 10/08/18 15:30 10/08/18 15:45 10/08/18 16:00 Temperature 98.2 F Pulse Rate 84 79 76 Respiratory Rate 20 20 18 Blood Pressure 164/103 H 160/74 H 176/75 H Pulse Oximetry 95 93 L 96 10/08/18 20:00 10/09/18 00:00 10/09/18 04:00 Temperature 97.4 F L 98 F 98.5 F Pulse Rate 61 66 75 Respiratory Rate 17 17 17 Blood Pressure 139/61 94/52 L 112/68 Pulse Oximetry 97 96 97 Intake & Output 10/08/18 10/09/18 10/09/18 18:59 06:59 18:59 Intake Total 450 / 450 1000 / 1000 Output Total Balance 440 / 440 1000 / 1000 Weight 121 lb 4.068 oz Intake: IV 1000 / 1000 D5W Inj 1,000 ML @ 84 mls/hr IV 1000 / 1000 .CONT .[id number] [facility] Rx#:[id number] Oral 0 / 0 Anesthesia Amount 450 / 450 Output: Estimated Blood Loss Other: # Voids 1 # Incontinent Voids 3 # Bowel Movements 0 0 Narrative: GENERAL: Well-developed well-nourished. In no acute distress. NECK: No carotid bruits. No JVD. CARDIOVASCULAR: Regular rate and rhythm. No murmur appreciated. RESPIRATORY: No accessory muscle use. Clear to auscultation. Breath sounds equal bilaterally. MUSCULOSKELETAL: No clubbing or cyanosis. No edema. NEUROLOGICAL: Awake and alert. Normal speech. Results 10/08/18 17:09 10/09/18 05:42 Cardiac Enzymes 10/07/18 10/07/18 10/07/18 Range/Units 12:05 17:17 20:30 AST (15-37) U/L CK-MB (CK-2) (0.5-3.6) ng/mL Troponin I 7.12 H* D 8.55 H* D 8.07 H* D (0.02-0.05) ng/mL 10/07/18 10/08/18 Range/Units 22:55 05:51 AST 44 H (15-37) U/L CK-MB (CK-2) 7.9 H (0.5-3.6) ng/mL Troponin I 8.42 H* D 9.54 H* D (0.02-0.05) ng/mL Coagulation 10/08/18 Range/Units 05:51 PT 10.8 (9.8-11.6) sec CBC 10/08/18 10/08/18 Range/Units 05:51 17:09 WBC 9.8 (4.0-11.0) th/mm3 RBC 3.96 L (4.00-5.30) mil/mm3 Hgb 10.6 L 10.5 L (11.6-15.3) gm/dL Hct 32.3 L 32.3 L (35.0-46.0) % Plt Count 192 (150-450) th/mm3 Neut # (Auto) 7.5 (1.8-7.7) th/mm3 Lymph # (Auto) 0.9 L (1.0-4.8) th/mm3 [place] # (Auto) 0.4 (0.0-0.9) th/mm3 Eos # (Auto) 0.9 H (0.0-0.4) th/mm3 Baso # (Auto) 0.1 (0.0-0.2) th/mm3 Comprehensive Metabolic Panel 10/07/18 10/07/18 10/08/18 Range/Units 12:05 17:17 05:51 Sodium 143 (136-145) meq/L Potassium 4.5 (3.5-5.1) meq/L Chloride 112 H (98-107) meq/L Carbon Dioxide 22.2 (21.0-32.0) meq/L BUN 43 H (7-18) mg/dL Creatinine 1.62 H 1.75 H 2.38 H (0.50-1.00) mg/dL Calcium 8.3 L (8.5-10.1) mg/dL AST 44 H (15-37) U/L ALT 27 (10-53) U/L Alkaline Phosphatase 89 (45-117) U/L Total Protein 6.7 (6.4-8.2) g/dL Albumin 3.1 L (3.4-5.0) g/dL 10/09/18 Range/Units 05:42 Sodium 140 (136-145) meq/L Potassium 4.4 (3.5-5.1) meq/L Chloride 110 H (98-107) meq/L Carbon Dioxide 23.6 (21.0-32.0) meq/L BUN 51 H (7-18) mg/dL Creatinine 2.58 H (0.50-1.00) mg/dL Calcium 7.8 L (8.5-10.1) mg/dL AST (15-37) U/L ALT (10-53) U/L Alkaline Phosphatase (45-117) U/L Total Protein (6.4-8.2) g/dL Albumin (3.4-5.0) g/dL Intake and Output 10/08/18 10/09/18 10/09/18 22:59 06:59 14:59 Intake Total 1000 / 1000 Balance 1000 / 1000 Intake: IV 1000 / 1000 D5W Inj 1,000 ML @ 84 mls/hr IV 1000 / 1000 .CONT .[id number] [facility] Rx#:[id number] Oral 0 / 0 Other: # Voids 1 # Incontinent Voids 3 # Bowel Movements 0 0 Weight 121 lb 4.068 oz - Imaging and Cardiology Imaging: Impressions Head CT 10/08/18 00:00 CONCLUSION: Stable brain with no acute findings . Hip X-Ray 10/08/18 00:00 CONCLUSION: Excellent alignment of the fracture post fixation. Assessment and Plan - Plan 87-year-old female with no known history of heart disease who presented after a fall and found to have hip fracture as well as elevated troponin. Assessment: NSTEMI: Troponin now is up to 9.54. She is not complaining of any active symptoms. She does have worsening renal function and this may be contributing to the further elevation of her troponin. Her echocardiogram shows no significant regional wall motion abnormalities and normal LV systolic function. A cardiac catheterization would put her at further risk for worsening renal function and probable dialysis. In the setting of normal left ventricular systolic function without any further chest pain, we will plan to medically manage at this time. Recommendations: Aspirin, statin, beta-ebony. Call with further questions. Discussed Condition With: Patient, RN, Dr. Melchor
--- NOTE | 2018-10-09 08:34 | P.PN ---
Subjective Interval history: Follow-up visit for end NSTEMI, CKD, right hip fracture. She is seen and examined resting in bed in no acute distress. This morning she is awake and oriented to self and following commands. She denies any chest pain, shortness of breath, or nausea. However later after readjusting herself in the bed complaints of pain and grabs her right side. Later in the day around 530 informed by nurse that patient received Percocet for pain earlier and now confused and agitated. Switch Percocet to tramadol and monitor response. PRN Haldol for agitation, discussed with nurse to only use for severe agitation. Patient to be started on Seroquel tonight. Physical Exam Vital signs: Vital Signs 10/08/18 12:00 10/08/18 15:09 10/08/18 15:15 Temperature 97.2 F L 98.0 F Pulse Rate 68 83 85 Respiratory Rate 16 15 20 Blood Pressure 151/67 H 184/79 H 138/99 H Pulse Oximetry 92 L 95 95 10/08/18 15:30 10/08/18 15:45 10/08/18 16:00 Temperature 98.2 F Pulse Rate 84 79 76 Respiratory Rate 20 20 18 Blood Pressure 164/103 H 160/74 H 176/75 H Pulse Oximetry 95 93 L 96 10/08/18 20:00 10/09/18 00:00 10/09/18 04:00 Temperature 97.4 F L 98 F 98.5 F Pulse Rate 61 66 75 Respiratory Rate 17 17 17 Blood Pressure 139/61 94/52 L 112/68 Pulse Oximetry 97 96 97 Intake & Output 10/08/18 10/09/18 10/09/18 18:59 06:59 18:59 Intake Total 450 / 450 1000 / 1000 Output Total Balance 440 / 440 1000 / 1000 Weight 55 kg Intake: IV 1000 / 1000 D5W Inj 1,000 ML @ 84 mls/hr IV 1000 / 1000 .CONT .[id number] [facility] Rx#:[id number] Oral 0 / 0 Anesthesia Amount 450 / 450 Output: Estimated Blood Loss Other: # Voids 1 # Incontinent Voids 3 # Bowel Movements 0 0 Narrative: GENERAL: Well-nourished, well-developed female in no acute distress. SKIN: Warm and dry. HEAD: Atraumatic. Normocephalic. EYES: Pupils equal and round. No scleral icterus. No injection or drainage. ENT: No nasal bleeding or discharge. Mucous membranes pink and moist. NECK: Trachea midline. CARDIOVASCULAR: Regular rate and rhythm. RESPIRATORY: No accessory muscle use. Clear to auscultation. Breath sounds equal bilaterally. GASTROINTESTINAL: Abdomen soft, non-tender, nondistended. + Bowel sounds MUSCULOSKELETAL: Extremities without clubbing, cyanosis, or edema. No obvious deformities. NEUROLOGICAL: Awake, alert, oriented to self. No obvious cranial nerve deficits. Motor grossly within normal limits, moving all extremities following commands. Speech is clear. PSYCHIATRIC: Inappropriate affect; poor insight and judgment normal. Results - Labs CBC & Chem 7: 10/08/18 17:09 10/10/18 06:02 Laboratory Results - last 24 hr 10/08/18 10/08/18 10/08/18 05:51 10:00 10:19 Hgb Hct Puncture Site Right radial Patient Temperature 98.6 O2 Saturation 91 ABG pH 7.36 L ABG pCO2 38 ABG pO2 70 ABG HCO3 21 L ABG O2 Content 13.5 ABG Base Excess -3.6 L ABG Methemoglobin 1.1 Ritchie Test Present Hemoglobin 10.5 L Carboxyhemoglobin 1.8 Inspired O2 21 Critical Value No Sodium Potassium Chloride Carbon Dioxide Anion Gap BUN Creatinine Estimated GFR POC Glucose Random Glucose Hemoglobin A1c 5.7 Calcium Ammonia 15 10/08/18 10/08/18 10/08/18 11:29 16:20 17:09 Hgb 10.5 L Hct 32.3 L Puncture Site Patient Temperature O2 Saturation ABG pH ABG pCO2 ABG pO2 ABG HCO3 ABG O2 Content ABG Base Excess ABG Methemoglobin Ritchie Test Hemoglobin Carboxyhemoglobin Inspired O2 Critical Value Sodium Potassium Chloride Carbon Dioxide Anion Gap BUN Creatinine Estimated GFR POC Glucose 106 133 H Random Glucose Hemoglobin A1c Calcium Ammonia 10/08/18 10/09/18 21:14 05:42 Hgb Hct Puncture Site Patient Temperature O2 Saturation ABG pH ABG pCO2 ABG pO2 ABG HCO3 ABG O2 Content ABG Base Excess ABG Methemoglobin Ritchie Test Hemoglobin Carboxyhemoglobin Inspired O2 Critical Value Sodium 140 Potassium 4.4 Chloride 110 H Carbon Dioxide 23.6 Anion Gap 6 BUN 51 H Creatinine 2.58 H Estimated GFR 17 L POC Glucose 161 H Random Glucose 124 H Hemoglobin A1c Calcium 7.8 L Ammonia - Imaging Impressions Head CT 10/08/18 00:00 CONCLUSION: Stable brain with no acute findings . Hip X-Ray 10/08/18 00:00 CONCLUSION: Excellent alignment of the fracture post fixation. Assessment and Plan - Assessment (1) Chronic pain Code(s): G89.29 - Other chronic pain Status: Chronic (2) Fall Code(s): W19.XXXA - Unspecified fall, initial encounter Status: Acute (3) Femoral neck fracture Code(s): S72.009A - Fracture of unspecified part of neck of unspecified femur, initial encounter for closed fracture Status: Acute (4) Diabetes Code(s): E11.9 - Type 2 diabetes mellitus without complications Status: Chronic (5) Hypertension Code(s): I10 - Essential (primary) hypertension Status: Chronic - Plan 87-year-old female with past medical history significant for diabetes , hypertension, hyperuricemia, chronic kidney disease, Alzheimer's dementia who presented to the emergency department after sustaining a fall. Imaging revealed fracture of left femoral neck. Orthopedic services consulted. Further testing revealed elevated and troponins trending up. Fall (imaging reports as seen above) Nondisplaced subcapital femoral fracture -Orthopedic services consulted. s/p right hip percutaneous pinning of femoral neck fracture 10/08 by . - PT following -Pain control with Percocet and morphine -Repeat H&H following surgery 10.5/32.3 NSTEMI -Cardiology services consulted, greatly appreciate assistance. -Latest EKG with ST deviation and moderate T wave abnormality, possible anterior lateral ischemia ST deviation and moderate T wave abnormality to consider inferior ischemia. -Echo with normal LV function -Cardiology following, appreciate assistance. - Treat medically for now given renal function. -Continue aspirin, beta-ebony (BP slightly on now side, decrease Metoprolol dose to 25mg BID), statin, nitro and Plavix -Patient with no chest pain complaints Acute on chronic kidney failure Review of EMR, baseline creatinine around 1.9-2.5 -Creatinine at admission 1.61 increased to 2.38-->2.58 -IV hydration, avoid nephrotoxins -Continue monitoring renal function closely if needed consult nephrology Hx Diabetes mellitus -Hemoglobin A1C 5.7 - heart healthy and renal diet -DC accu-checks and ISS Altered mental status Embolic encephalopathy -Likely multifactorial due to Alzheimer's dementia, narcotics, and NSTEMI -Stat head CT negative, ABG stable, ammonia within normal limits, UA negative -Neurochecks every 4 hours -Mental status improved this morning, awake oriented to self and talking. Alzheimer's dementia -? If this is been exacerbated -Consult psychiatry, greatly appreciate assistance -Will be stated on low dose antipsychotic, no need for psych admission at this moment. DVT prophylaxissubq Lovenox Discussed Condition With: Patient, RN, and (2) Fall Qualifiers: Encounter type: initial encounter Qualified Code(s): W19.XXXA - Unspecified fall, initial encounter (3) Femoral neck fracture Qualifiers: Encounter type: initial encounter Fracture type: closed Laterality: right Qualified Code(s): S72.001A - Fracture of unspecified part of neck of right femur, initial encounter for closed fracture
[2018-10-09] MEDS ORDERED: Enoxaparin Inj 40 MG/0.4 ML Syringe SQ SCH (09:00)
[2018-10-09] MEDS: Famotidine PF Inj 20 MG/2 ML Vial IV.PUSH SCH ×2 (09:54→23:34)
[2018-10-09] MEDS: Senna/Docusate Sodium 8.6/50 MG Tablet PO SCH ×2 (09:54→23:34)
[2018-10-09] MEDS: Metoprolol Tartrate 50 MG Tablet PO SCH ×2 (09:55→23:34)
[2018-10-09 11:45] LABS: Calcium 7.6 mg/dL (8.5-10.1); Carbon Dioxide 18.9 meq/L (21.0-32.0); Potassium 4.1 meq/L (3.5-5.1)
--- NOTE | 2018-10-09 15:57 | P.CONPSY ---
Provisional Diagnosis Admission Date: October 07, 2018 05:11 [place] I.: Delirium due to underline medical conditions, Dementia, Hx of delusional disorder History of Present Illness Service: Medicine Primary Care Provider: UNKNOWN Chief Complaint: STATUS POST FALL DUE TO A TRIP AND FALL History of Present Illness: The patient is a 87 years old woman, domiciled with her in [place], with psychiatric history of dementia, Delusional disorder, 1 previous psychiatric hospitalizations here in [place] in January 2018 with an episode of acute psychosis, no previous suicidal attempts, medical history significant for diabetes, hypertension, hyperuricemia, chronic kidney disease, who presented to the emergency department after sustaining a fall. Imaging revealed fracture of left femoral neck. Orthopedic services consulted. Further testing revealed elevated and troponins trending up. Admitted due to Fall: Nondisplaced subcapital femoral fracture: Orthopedic services consulted. s /p right hip percutaneous pinning of femoral neck fracture 10/08 by . She also was diagnosed with acute kidney injury and altered mental status. Consulted to psychiatry given her acute delirium. On my psychiatric evaluation today the patient is calm, superficially cooperative, very disorganized. The patient is alert, oriented in person, but disoriented in time and place, with a significant attention deficit and fluctuation of consciousness, unable to provide any meaningful information for the psychiatric assessment given her level of delirium. however, she is no agitated or aggressive - PMFSH - History History Provided By: Significant Other - Medical History Medical History: Medical History (Last Reviewed 10/09/18 @ 08:47 by Racheal Fisher) Diabetes (Acute) Hypertension (Acute) Chronic kidney disease (Acute) Hyperuricemia (Acute) - Surgical History Surgical History: Surgical History (Last Reviewed 10/09/18 @ 08:47 by Racheal Fisher) H/O partial thyroidectomy (Acute) History of repair of hiatal hernia (Acute) History of cholecystectomy (Acute) - Family History Family History: Family History (Last Reviewed 10/08/18 @ 21:53 by Dillon Pena MD) Other Family history of hypertension - Tobacco History Second Hand Smoke Exposure: No Tobacco Use In Past 30 Days: No Smoking Status: Never smoker - Alcohol History How Often Do You Have a Drink Containing Alcohol: Never - Substance Use History Substance History: No History of Abuse - Travel History History of Recent Travel: No Recent Travel in the [facility] Within the Last 8 Weeks: No Recent Travel Out of the Country Within the Last 8 Weeks: No - Immunization History Tetanus Immunization: >5 Years Hx Influenza Vaccine This Season: No Medications and Allergies Active Medications: Active Medications Acetaminophen (Tylenol) 650 mg PO Q4H PRN PRN Reason: Temp > 100.4 Last Admin: 10/07/18 22:17 Dose: 650 mg Al Hydroxide/Mg Hydroxide (Milk Of Magnesia Liq) 30 ml PO Q12H PRN PRN Reason: Mild Constipation Aspirin (Aspirin Chew) 81 mg PO DAILY [facility] Last Admin: 10/09/18 09:54 Dose: 81 mg Bisacodyl (Dulcolax Supp) 10 mg RECTAL DAILY PRN PRN Reason: SEVERE CONSITIPATION Clonidine HCl (Catapres) 0.1 mg PO Q6H PRN PRN Reason: HYPERTENSION Last Admin: 10/08/18 16:52 Dose: 0.1 mg Clopidogrel Bisulfate (Plavix) 75 mg PO DAILY [facility] Last Admin: 10/09/18 09:54 Dose: 75 mg Dextrose (D50w Vial) 50 ml IV.PUSH UNSCH PRN PRN Reason: PER HYPOGLYCEMIA PROTOCOL Famotidine (Pepcid Pf Inj) 10 mg IV.PUSH Q12HR [facility] Last Admin: 10/09/18 09:54 Dose: 10 mg Glucagon (Glucagon Inj) 1 mg OTHER PRN PRN PRN Reason: for Hypoglycemia Protocol Sodium Chloride (Ns Inj) 500 mls @ 30 mls/hr IV.SIG .Q10H [facility] Sodium Chloride (Ns Inj) 1,000 mls @ 100 mls/hr IV.CONT .Q10H [facility] Lactulose (Lactulose Liq) 30 ml PO DAILY PRN PRN Reason: SEVERE CONSITIPATION Metoprolol Tartrate (Lopressor) 50 mg PO BID [facility] Last Admin: 10/09/18 09:55 Dose: Not Given Miscellaneous Information (Misc Nursing Information) 0 each OTHER UNSCH PRN PRN Reason: SEE LABEL COMMENTS Stop: 10/09/18 16:00 Morphine Sulfate (Morphine Inj) 2 mg IV.PUSH Q4H PRN PRN Reason: Pain 3-10;unable to take p.o. Last Admin: 10/09/18 06:12 Dose: 2 mg Naloxone HCl (Narcan Inj) 0.4 mg IV.PUSH UNSCH PRN PRN Reason: SEE LABEL COMMENTS Nitroglycerin (Nitro-Bid 2% Oint) 1 inch TOPICAL Q6HR [facility] Last Admin: 10/09/18 12:33 Dose: 1 inch Ondansetron HCl (Zofran Inj) 4 mg IV.PUSH Q6H PRN PRN Reason: NAUSEA OR VOMITING Oxycodone/Acetaminophen (Percocet 5/325 Mg) 1 tab PO Q6H PRN PRN Reason: Pain Scale 3 To 10 Pravastatin Sodium (Pravachol) 40 mg PO HS [facility] Last Admin: 10/08/18 21:17 Dose: 40 mg Senna/Docusate Sodium (Tracey-Colace) 1 tab PO BID [facility] Last Admin: 10/09/18 09:54 Dose: 1 tab Sennosides (Senokot) 17.2 mg PO Q12H PRN PRN Reason: Moderate Constipation Sodium Chloride (Ns Flush) 2 ml IV.FLUSH UNSCH PRN PRN Reason: FLUSH AFTER USING IV ACCESS Allergies Allergy/AdvReac Type Severity Reaction Status Date / Time codeine Allergy Severe Unverified 12/29/17 22:10 estradiol Allergy Severe Unverified 12/29/17 22:10 estrogens, conjugated Allergy Severe Unverified 12/29/17 22:10 fexofenadine Allergy Severe Unverified 12/29/17 22:10 prednisone AdvReac Severe Verified 12/29/17 22:10 Home Medications Medication Instructions Recorded Confirmed Type No Known Home Medications 10/07/18 10/07/18 History Exam Vital signs: Vital Signs 10/08/18 16:00 10/08/18 20:00 10/09/18 00:00 Temperature 98.2 F 97.4 F L 98 F Pulse Rate 76 61 66 Respiratory Rate 18 17 17 Blood Pressure 176/75 H 139/61 94/52 L Pulse Oximetry 96 97 96 10/09/18 04:00 10/09/18 08:00 10/09/18 12:00 Temperature 98.5 F 97.3 F L 98.2 F Pulse Rate 75 79 81 Respiratory Rate 17 16 16 Blood Pressure 112/68 92/58 L 130/69 Pulse Oximetry 97 96 94 L Intake & Output 10/08/18 10/09/18 10/09/18 18:59 06:59 18:59 Intake Total 450 / 450 1000 / 1000 Output Total 10 / 10 Balance 440 / 440 1000 / 1000 Weight 55 kg Intake: IV 1000 / 1000 D5W Inj 1,000 ML @ 84 mls/hr IV 1000 / 1000 .CONT .[id number] [facility] Rx#:[id number] Oral 0 / 0 Anesthesia Amount 450 / 450 Output: Estimated Blood Loss Other: # Voids 1 # Incontinent Voids 3 Date of Last Bowel Movement 10/06/18 # Bowel Movements 0 0 Mental Status Examination Appearance: Appropriate Orientation: Person Motor Activity: Abnormal gait Speech: Incoherent Language: Adequate Fund of Knowledge: Inadequate Attention and Concentration: Inadequate Memory: Impaired Mood: Oppositional Affect: Irritable Thought Process & Associations: Loose associations Thought Content: Bizarre thinking Hallucination Type: Visual Delusion Type: Bizarre Suicidal Ideation: No Suicidal Plan: No Suicidal Intention: No Homicidal Ideation: No Homicidal Plan: No Homicidal Intention: No Insight: Poor Judgment: Poor Assessment and Plan - Assessment (1) Delirium due to another medical condition Code(s): F05 - Delirium due to known physiological condition Status: Acute (2) Femoral neck fracture Code(s): S72.009A - Fracture of unspecified part of neck of unspecified femur, initial encounter for closed fracture Status: Acute - Plan Plan: On my psychiatric evaluation today the patient is calm, superficially cooperative, unable to provide any meaningful or significant information for the psychiatric assessment given her level of disorganized thinking. The patient is alert, oriented in person, but disoriented in time and place, with a significant impairment in her thought process, with attention deficit, fluctuation of consciousness which is consistent with delirium most probably related with underlying medical conditions. The patient denies suicidal and homicidal ideation, she denies visual and auditory hallucination at the moment. No agitation, no aggressive behavior present at the moment. Delirium most likely related with multiple factors including post-surgery, polypharmacy, electrolyte imbalance and others. Patient benefits of a low dose of antipsychotics to help to prevent neuropsychiatric symptoms agitation and aggressive behavior, I will start Seroquel 12.5 mg twice daily. Haldol 1-2 mg IM every 8 hours as needed severe agitation and aggressive behavior can also be ordered. QTc interval is QTC 416. Try to avoid delirio genic medications muscle support Benzos/narcotic, anticholinergics. Frequent reorientation, familiar faces around the bed, frequent sensory stimulation, appropriate light in the room are highly recommended. I will follow-up. Justification for Continued Inpatient Stay: No admission indicated at this moment (2) Femoral neck fracture Qualifiers: Encounter type: initial encounter Fracture type: closed Laterality: right Qualified Code(s): S72.001A - Fracture of unspecified part of neck of right femur, initial encounter for closed fracture
[2018-10-09] MEDS ORDERED: Haloperidol Inj 5 MG/ML Ampul IV.PUSH PRN (17:25)
[2018-10-09] MEDS: Sod Chloride 0.9% Inj 1,000 ML IV.CONT SCH (18:35)
--- NOTE | 2018-10-09 19:21 | P.PNOP ---
Subjective Interval history: Patient evaluated with RN at bedside Physical Exam Vital signs: Vital Signs 10/08/18 20:00 10/09/18 00:00 10/09/18 04:00 Temperature 97.4 F L 98 F 98.5 F Pulse Rate 61 66 75 Respiratory Rate 17 17 17 Blood Pressure 139/61 94/52 L 112/68 Pulse Oximetry 97 96 97 10/09/18 08:00 10/09/18 12:00 10/09/18 16:00 Temperature 97.3 F L 98.2 F 98.2 F Pulse Rate 79 81 96 H Respiratory Rate 16 16 16 Blood Pressure 92/58 L 130/69 128/97 H Pulse Oximetry 96 94 L 95 10/09/18 16:42 Temperature Pulse Rate Respiratory Rate Blood Pressure Pulse Oximetry 94 L Intake & Output 10/09/18 10/09/18 10/10/18 06:59 18:59 06:59 Intake Total 1000 / 1000 Balance 1000 / 1000 Weight 55 kg Intake: IV 1000 / 1000 D5W Inj 1,000 ML @ 84 mls/hr IV 1000 / 1000 .CONT .[id number] [facility] Rx#:[id number] Oral 0 / 0 Other: # Voids 1 # Urine Diapers 1 Date of Last Bowel Movement 10/06/18 # Bowel Movements 0 - Constitutional mild distress, agitated Comments: Right hip dressing in place neuro intact dressing intact Results - Labs CBC & Chem 7: 10/08/18 17:09 10/09/18 10:35 Laboratory Results - last 24 hr 10/08/18 10/09/18 10/09/18 21:14 05:42 08:05 Sodium 140 Potassium 4.4 Chloride 110 H Carbon Dioxide 23.6 Anion Gap 6 BUN 51 H Creatinine 2.58 H Estimated GFR 17 L POC Glucose 161 H 150 H Random Glucose 124 H Calcium 7.8 L 10/09/18 10/09/18 10/09/18 10:35 12:27 17:13 Sodium 139 Potassium 4.1 Chloride 108 H Carbon Dioxide 18.9 L Anion Gap 12 BUN 51 H Creatinine 2.53 H Estimated GFR 18 L POC Glucose 164 H 105 Random Glucose 143 H Calcium 7.6 L Assessment and Plan - Ortho Post Op Day # 1 (Right hip percutaneous pinning) - Assessment and Plan Plan: Weight bearing as tolerated Plavix for cardiac and DVT prophylaxis Medical and Cardiac management Physical therapy Weight bearing as tolerated Probably will require SNF This may be a transition periord to intermediate placement.
[2018-10-09] MEDS: QUEtiapine 25 MG Tablet PO SCH (23:34)
[2018-10-10 06:54] LABS: Calcium 7.6 mg/dL (8.5-10.1); Carbon Dioxide 21.5 meq/L (21.0-32.0); Potassium 4.1 meq/L (3.5-5.1)
--- NOTE | 2018-10-10 07:14 | P.PNOP ---
Subjective Interval history: hx of dementia, sleeping comfortably Physical Exam Vital signs: Vital Signs 10/09/18 08:00 10/09/18 12:00 10/09/18 16:00 Temperature 97.3 F L 98.2 F 98.2 F Pulse Rate 79 81 96 H Respiratory Rate 16 16 16 Blood Pressure 92/58 L 130/69 128/97 H Pulse Oximetry 96 94 L 95 10/09/18 16:42 10/09/18 19:45 10/10/18 00:05 Temperature 98.4 F 98.6 F Pulse Rate 90 85 Respiratory Rate 17 17 Blood Pressure 124/60 124/73 Pulse Oximetry 94 L 95 96 10/10/18 01:30 10/10/18 03:30 Temperature 97.8 F Pulse Rate 83 Respiratory Rate 18 18 Blood Pressure 153/74 H Pulse Oximetry 96 Intake & Output 10/09/18 10/10/18 10/10/18 18:59 06:59 18:59 Intake Total 60 / 60 Balance 60 / 60 Weight 57.2 kg Intake: Oral 60 / 60 Other: # Voids 1 # Urine Diapers 1 Date of Last Bowel Movement 10/06/18 10/08/18 # Bowel Movements 0 Narrative: pt sleeping comfortably right hip dressings dry and intact Results - Labs CBC & Chem 7: 10/08/18 17:09 10/10/18 06:02 Laboratory Results - last 24 hr 10/09/18 10/09/18 10/09/18 08:05 10:35 12:27 Sodium 139 Potassium 4.1 Chloride 108 H Carbon Dioxide 18.9 L Anion Gap 12 BUN 51 H Creatinine 2.53 H Estimated GFR 18 L POC Glucose 150 H 164 H Random Glucose 143 H Calcium 7.6 L 10/09/18 10/09/18 10/10/18 17:13 23:47 06:02 Sodium 139 Potassium 4.1 Chloride 108 H Carbon Dioxide 21.5 Anion Gap 10 BUN 43 H Creatinine 1.96 H Estimated GFR 24 L POC Glucose 105 144 H Random Glucose 101 Calcium 7.6 L Assessment and Plan - Assessment and Plan Plan: POD # 2 s/p R ORIF Weight bearing as tolerated Plavix for cardiac and DVT prophylaxis Medical and Cardiac management Physical therapy Weight bearing as tolerated Probably will require SNF, most likely Friday This may be a transition period to correction placement.
[2018-10-10] MEDS: Sod Chloride 0.9% Inj 1,000 ML IV.CONT SCH ×3 (07:18→16:34)
[2018-10-10] MEDS: Senna/Docusate Sodium 8.6/50 MG Tablet PO SCH ×2 (09:42→21:22)
[2018-10-10] MEDS: Famotidine PF Inj 20 MG/2 ML Vial IV.PUSH SCH ×2 (09:42→21:23)
[2018-10-10] MEDS: Metoprolol Tartrate 50 MG Tablet PO SCH ×2 (09:43→21:23)
[2018-10-10] MEDS: QUEtiapine 25 MG Tablet PO SCH ×2 (09:43→21:22)
--- NOTE | 2018-10-10 09:59 | P.PN ---
Subjective Interval history: Follow-up visit for NSTEMI, CKD and right hip fracture. Patient seen and examined with nurse at bedside in no acute distress. This morning with eyes closed and not speaking. Nurse reports patient had been well overnight, completely alert and oriented. Physical Exam Vital signs: Vital Signs 10/09/18 12:00 10/09/18 16:00 10/09/18 16:42 Temperature 98.2 F 98.2 F Pulse Rate 81 96 H Respiratory Rate 16 16 Blood Pressure 130/69 128/97 H Pulse Oximetry 94 L 95 94 L 10/09/18 19:45 10/10/18 00:05 10/10/18 01:30 Temperature 98.4 F 98.6 F Pulse Rate 90 85 Respiratory Rate 17 17 18 Blood Pressure 124/60 124/73 Pulse Oximetry 95 96 10/10/18 03:30 Temperature 97.8 F Pulse Rate 83 Respiratory Rate 18 Blood Pressure 153/74 H Pulse Oximetry 96 Intake & Output 10/09/18 10/10/18 10/10/18 18:59 06:59 18:59 Intake Total 60 / 60 Balance 60 / 60 Weight 57.2 kg Intake: Oral 60 / 60 Other: # Voids 1 # Urine Diapers 1 Date of Last Bowel Movement 10/06/18 10/08/18 # Bowel Movements 0 Narrative: GENERAL: Well-nourished, well-developed female in no acute distress. SKIN: Warm and dry. HEAD: Atraumatic. Normocephalic. EYES: No scleral icterus. No injection or drainage. ENT: No nasal bleeding or discharge. Mucous membranes pink and moist. NECK: Trachea midline. CARDIOVASCULAR: Regular rate and rhythm. RESPIRATORY: No accessory muscle use. Clear to auscultation. Breath sounds equal bilaterally. GASTROINTESTINAL: Abdomen soft, non-tender, nondistended. + Bowel sounds MUSCULOSKELETAL: Extremities without clubbing, cyanosis, or edema. No obvious deformities. NEUROLOGICAL: Awake, alert. No obvious cranial nerve deficits. Motor grossly within normal limits, moving all extremities following commands. PSYCHIATRIC: Inappropriate affect; poor insight and judgment normal. Results - Labs CBC & Chem 7: 10/08/18 17:09 10/10/18 06:02 Laboratory Results - last 24 hr 10/09/18 10/09/18 10/09/18 10:35 12:27 17:13 Sodium 139 Potassium 4.1 Chloride 108 H Carbon Dioxide 18.9 L Anion Gap 12 BUN 51 H Creatinine 2.53 H Estimated GFR 18 L POC Glucose 164 H 105 Random Glucose 143 H Calcium 7.6 L 10/09/18 10/10/18 10/10/18 23:47 06:02 08:26 Sodium 139 Potassium 4.1 Chloride 108 H Carbon Dioxide 21.5 Anion Gap 10 BUN 43 H Creatinine 1.96 H Estimated GFR 24 L POC Glucose 144 H 122 H Random Glucose 101 Calcium 7.6 L Assessment and Plan - Assessment (1) Chronic pain Code(s): G89.29 - Other chronic pain Status: Chronic (2) Fall Code(s): W19.XXXA - Unspecified fall, initial encounter Status: Acute (3) Femoral neck fracture Code(s): S72.009A - Fracture of unspecified part of neck of unspecified femur, initial encounter for closed fracture Status: Acute (4) Diabetes Code(s): E11.9 - Type 2 diabetes mellitus without complications Status: Chronic (5) Hypertension Code(s): I10 - Essential (primary) hypertension Status: Chronic - Plan 87-year-old female with past medical history significant for diabetes , hypertension, hyperuricemia, chronic kidney disease, Alzheimer's dementia who presented to the emergency department after sustaining a fall. Imaging revealed fracture of left femoral neck. Orthopedic services consulted. Further testing revealed elevated and troponins trending up. Fall (imaging reports as seen above) Nondisplaced subcapital femoral fracture -Orthopedic services consulted. s/p right hip percutaneous pinning of femoral neck fracture 10/08 by . - PT following -Pain control with Percocet and morphine -Repeat H&H following surgery 10.5/32.3 NSTEMI -Cardiology services consulted, greatly appreciate assistance. -Latest EKG with ST deviation and moderate T wave abnormality, possible anterior lateral ischemia ST deviation and moderate T wave abnormality to consider inferior ischemia. -Echo with normal LV function -Cardiology following, appreciate assistance. - Treat medically for now given renal function. -Continue aspirin, beta-ebony, statin, nitro and Plavix -Patient with no chest pain complaints Acute on chronic kidney failure Review of EMR, baseline creatinine around 1.9-2.5 -Creatinine at admission 1.61 increased to 2.38-->2.58-->1.96 -IV hydration, avoid nephrotoxins -Continue monitoring renal function closely if needed consult nephrology Hx Diabetes mellitus -Hemoglobin A1C 5.7 - heart healthy and renal diet Altered mental status Embolic encephalopathy -Likely multifactorial due to Alzheimer's dementia, narcotics, and NSTEMI -Stat head CT negative, ABG stable, ammonia within normal limits, UA negative -Neurochecks every 4 hours -Waxes and wanes mental status. Alzheimer's dementia -Consult psychiatry, greatly appreciate assistance -Low-dose antipsychotics, no need for psych admission at this moment. DVT prophylaxissubq Lovenox Discussed Condition With: Patient, RN, Dr. Gay (2) Fall Qualifiers: Encounter type: initial encounter Qualified Code(s): W19.XXXA - Unspecified fall, initial encounter (3) Femoral neck fracture Qualifiers: Encounter type: initial encounter Fracture type: closed Laterality: right Qualified Code(s): S72.001A - Fracture of unspecified part of neck of right femur, initial encounter for closed fracture
--- NOTE | 2018-10-11 08:11 | P.PNOP ---
Subjective Interval history: pt has no voiced complaints other than hip pain Physical Exam Vital signs: Vital Signs 10/10/18 12:00 10/10/18 17:09 10/10/18 20:00 Temperature 98.0 F 98.0 F 98.6 F Pulse Rate 65 70 63 Respiratory Rate 18 18 18 Blood Pressure 129/77 136/60 128/67 Pulse Oximetry 98 98 97 10/11/18 00:00 Temperature 98.6 F Pulse Rate 70 Respiratory Rate 20 Blood Pressure 147/88 H Pulse Oximetry 97 Intake & Output 10/10/18 10/11/18 10/11/18 18:59 06:59 18:59 Intake Total 240 / 240 220 / 220 Output Total 2 / 2 300 / 300 Balance 238 / 238 -80 / -80 Intake: Oral 240 / 240 220 / 220 Output: Urine 2 / 2 300 / 300 Other: Date of Last Bowel Movement 10/08/18 10/08/18 Narrative: also seen and examined by Dr. 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
[2018-10-11] MEDS: Metoprolol Tartrate 50 MG Tablet PO SCH (09:18)
[2018-10-11] MEDS: Senna/Docusate Sodium 8.6/50 MG Tablet PO SCH (09:18)
[2018-10-11] MEDS: Famotidine PF Inj 20 MG/2 ML Vial IV.PUSH SCH (09:20)
--- NOTE | 2018-10-11 09:54 | P.DS ---
Date of admission: 10/07/18 05:11 Primary care physician: UNKNOWN Attending physician on discharge: Sridhar Jeong Anticipated date of discharge: 10/11/18 Brief History from admission: Patient is a 87-year-old female presented to [facility] emergency department with a history of falling prior to admission. Patient reports that she tripped over AN AC GRATE in the floor. Patient states she landed on her right side now has right hip pain. Patient also reported to ambulance service that she had back pain. Patient states she has chronic back pain. Now reports that it is worse. She denies having any numbness or tingling to her arms or legs or weakness of her arms or legs. When asked about the patient's medications she reports that she does not take any. Patient states that she does not have any known medical problems. Even though chart review says otherwise. Patient reports that she fell she had a tightening sensation in her chest and was short of breath prior to falling. She is unsure whether she had any cardiac history or any murmurs. Or any issues. Patient denies having any recent fevers. She denies any cough, denies any congestion, denies any abdominal pain, denies any vomiting, denies any diarrhea, denies any urinary symptoms. Denies any symptoms. May have some degree of possible dementia Patient was found to have a right femoral neck fracture and will be admitted for pain control and orthopedics to evaluate and hopefully treat the issue. Will make sure she has pain control A.m. labs Trend troponins Discussed with RN and patient DS: Diagnosis - Discharge Diagnosis (1) Chronic pain Status: Chronic (2) Fall Status: Acute (3) Femoral neck fracture Status: Acute (4) Diabetes Status: Chronic (5) Hypertension Status: Chronic DS: Medications - Discharge Medications Prescriptions: aspirin 81 mg PO DAILY #30 tab clopidogrel [Plavix] 75 mg PO DAILY #30 tab famotidine [Pepcid] 20 mg PO DAILY #30 tab metoprolol tartrate 25 mg PO BID #60 tab nitroglycerin [Nitrostat] 0.3 mg SUBLINGUAL Q5-15M PRN #15 tab PRN Reason: Chest Pain pravastatin 40 mg PO HS #30 tab quetiapine 12.5 mg PO BID #60 tab tramadol [Ultram] 25 mg PO Q8H PRN #3 tab PRN Reason: Pain 3-10 DS: Summary Hospital Course: 87-year-old female with past medical history significant for diabetes , hypertension, hyperuricemia, chronic kidney disease, Alzheimer's dementia who presents to the emergency department after sustaining a witnessed fall at home, no head trauma or LOC. Imaging on admission showed nondisplaced subcapital right femur fracture and orthopedic services was consulted for further evaluation. Initial lab work revealed a minimally elevated troponin at 0.04, this later increased reaching a max of 9.54, patient remained asymptomatic with no chest pain complaints. EKG in the ER showed NSR with ST segment depression in anterior and lateral leads. Cardiology services was consulted for further recommendations due to NSTEMI. She was seen and evaluated by Dr. Johnson, concerns for cardiac intervention given patient's worsening renal function. Echo showed no significant regional wall motion abnormality with normal LV systolic function. Recommendations made for no catheterization or percutaneous intervention at the moment given risk further damaging kidneys requiring dialysis. Patient was cleared for surgery although deemed high risk. Recommendations for medical management by cardiology. Patient underwent right hip percutaneous pinning of femur neck fracture 10/08 by . Following surgery patient was cleared by to start Plavix, patient was also started on beta-ebony, statin and aspirin. Renal function stayed about the same with a creatinine of 1.96 and GFR of 24. During her hospitalization psychiatry services was also consulted due to patient's history of Alzheimer's dementia with delirium. Delirium possibly secondary to narcotics, improved mentation when off of these, did well on tramadol for pain. Psychiatry did not recommend inpatient psychiatric admission, started patient on low-dose Seroquel. Patient has been cleared by [facility] Cardiology services does not planned any acute intervention while hospitalized, plans for medical management of an NSTEMI. Patient is seen and examined resting in bed comfortably in no acute distress. Nurse reports patient did well overnight with no acute concerns or events. Patient denies any pain or discomfort at the moment. Denies any shortness of breath, nausea or chest pain. Discussed with [facility] facility, he is agreeable and as discussed this with case management. We discussed follow-up with cardiology as an outpatient as well as follow-up with orthopedic services and ongoing monitoring of her renal function. He is agreeable with discharge today. - Time Spent with Patient Total time spent providing and/or coordinating discharge services: Greater than 30 minutes - Quality: VTE Deep Vein Thrombosis/Pulmonary Embolism Present on Admission: No Exam Vital signs: Vital Signs 10/10/18 12:00 10/10/18 17:09 10/10/18 20:00 Temperature 98.0 F 98.0 F 98.6 F Pulse Rate 65 70 63 Respiratory Rate 18 18 18 Blood Pressure 129/77 136/60 128/67 Pulse Oximetry 98 98 97 10/11/18 00:00 Temperature 98.6 F Pulse Rate 70 Respiratory Rate 20 Blood Pressure 147/88 H Pulse Oximetry 97 Intake & Output 10/10/18 10/11/18 10/11/18 18:59 06:59 18:59 Intake Total 240 / 240 220 / 220 Output Total 2 / 2 300 / 300 Balance 238 / 238 -80 / -80 Intake: Oral 240 / 240 220 / 220 Output: Urine 2 / 2 300 / 300 Other: Date of Last Bowel Movement 10/08/18 10/08/18 Results Procedures completed during hospitalization: 10/08 Right hip percutaneous pinning of femoral neck fracture using Synthes 7.[address]Bryan Rodriguez on day of discharge: Labs from last 24 hours 10/11/18 10/10/18 10/10/18 09:17 17:20 11:35 POC Glucose 91 95 130 H - Impressions ITS Impressions Cervical Spine CT 10/07/18 02:43 CONCLUSION: 1. Negative for acute traumatic injury in the cervical spine. No significant canal stenosis. Chest X-Ray 10/07/18 02:43 CONCLUSION: Interstitial prominence could represent early interstitial edema. No dense consolidation or effusion. Lumbar Spine CT 10/07/18 02:44 CONCLUSION: 1. No acute findings. Osteopenia. Normal alignment. Thoracic Spine CT 10/07/18 02:44 CONCLUSION: 1. No acute fracture. No significant bony canal stenosis. Pelvis CT 10/07/18 03:28 CONCLUSION: 1. Probable nondisplaced fracture through the outer cortex of the right femoral neck best seen on the coronal images. No other fracture identified. Head CT 10/08/18 00:00 CONCLUSION: Stable brain with no acute findings . Hip X-Ray 10/08/18 00:00 CONCLUSION: Excellent alignment of the fracture post fixation. Discharge Plan - Discharge Disposition Patient Disposition: Discharge to SNF - Discharge Condition Condition: Fair - Discharge Order Discharge Orders: Discharge Order (Routine); Ordered 10/11/18 Ordered By: Stacey Ac - Discharge Details Discharge Comment: orthopedically clear for discharge - Physicians Team Primary Care Provider: UNKNOWN, Attending Provider: Sridhar Jeong Other Providers: Heath Bazan MD ; Andrew Johnson MD ; Edouard Olvera MD ; [facility]
[2018-10-11] MEDS: QUEtiapine 25 MG Tablet PO SCH (11:35)
[2018-10-11 11:57] LABS: Calcium 7.8 mg/dL (8.5-10.1); Carbon Dioxide 21.8 meq/L (21.0-32.0); Potassium 4.1 meq/L (3.5-5.1)
== END 2018-10-11 12:22 ==
LOC: NEPC 02:15 → NEDA 05:11 → NEDH 08:21 → N06 16:12
PROVIDERS: ADMIT Internal Medicine; ATTEND Internal Medicine